=== PATIENT | female | born 2000 | race Caucasian/White ===

== ENCOUNTER 2021-08-10 17:17 | Emergency (ER) | payer SELFPAY ==
[2021-08-10 17:28] VITALS: BP 152/110; PULSE 92; RESP 18; TEMP 37.2; O2SAT 100
--- NOTE | 2021-08-10 20:24 | PC.NURSE ---
Called patient's name in lobby for VS check @ 20:15. Received no answer
--- NOTE | 2021-08-10 22:46 | PC.NURSE ---
No answer when called for recheck of vitals for 2nd time.
== END 2021-08-10 22:46 | disposition left against medical advice (07) ==
LOC: ANHED 22:54
PROVIDERS: PCP Internal Medicine
DX: O20.9 Hemorrhage in early pregnancy, unspecified (principal); Z3A.01 Less than 8 weeks gestation of pregnancy
CPT/HCPCS: 99199

== ENCOUNTER 2021-08-11 17:00 | Outpatient (RCR) | payer OTHER, SELFPAY | END 2021-11-09 23:59 | disposition home or self-care (01) | LOC: ANHLAB 17:00 | PROVIDERS: PCP Internal Medicine; Visit Provider Obstetrics & Gynecology | DX: O20.0 Threatened abortion (principal); Z3A.00 Weeks of gestation of pregnancy not specified | CPT/HCPCS: 36415; 84702; 85461 ==

== ENCOUNTER 2021-11-10 13:04 | Emergency (ER) | payer MEDICAID, SELFPAY ==
[2021-11-10 13:07] VITALS: BP 142/75; PULSE 97; RESP 18; TEMP 36.7; O2SAT 100
--- NOTE | 2021-11-10 13:42 | ECG_ITS ---
Measurements Intervals [place] Rate: 86 P: 57 TN: 137 QRS: 90 QRSD: 85 T: 40 QT: 341 QTc: 409 Interpretive Statements SINUS RHYTHM WITH SINUS ARRHYTHMIA RIGHT AXIS DEVIATION MINIMAL Q WAVES- INFERIOR LEADS BORDERLINE ECG Electronically Signed On 11-10-2021 14:43:11 CDT by Steve Fernando D.O.
--- NOTE | 2021-11-10 13:45 | ED.GENADULT ---
HPI - General Adult General Chief complaint: Unspecified Stated complaint: shortness of breath Time Seen by Provider: 11/10/21 13:12 History of Present Illness HPI narrative: 21-year-old female presents the emergency room for evaluation of shortness of breath and chest tightness started this morning. Patient states that she received a third COVID shot 3 days ago, and is concerned that she might have a blood clot. Patient also suffers with anxiety, stating when she has anxiety attack it causes her to have similar symptoms. Patient is 5 months and under the care of Dr. Dawkins. Related Data Allergies Allergy/AdvReac Type Severity Reaction Status Date / Time No Known Allergies Allergy Verified 11/10/21 13:09 Review of Systems Review of Systems: CONSTITUTIONAL: Denies fever, chills, or sweats. EYES: Denies visual changes, redness, or discharge. ENT: Denies rhinorrhea, congestion, sore throat, or otalgia. CARDIOVASCULAR: Reports chest pain, palpitations RESPIRATORY: Reports shortness of breath GASTROINTESTINAL: Denies abdominal pain, nausea, vomiting, or diarrhea. GENITOURINARY: Denies dysuria or hematuria. SKIN: Denies rash or itching. MUSCULOSKELETAL: Denies back pain, joint pain, or myalgia. NEUROLOGIC: Denies headache, numbness, dizziness, or weakness. PSYCHIATRIC: Denies anxiety or depression. Exam Narrative: GENERAL: Well-appearing, well-nourished HEAD: Normocephalic, atraumatic. EYES: PERRLA and EOMI. CHEST: Clear to auscultation. No respiratory distress. No wheezes rales or rhonchi HEART: Regular rate and rhythm. No murmur heard. Normal peripheral pulses. ABDOMEN: Soft, nontender, nondistended, normal active bowel sounds. EXTREMITIES: Normal range of motion. No edema. SKIN: Warm, dry, no rash. NEURO: No focal deficits. Alert and oriented x3. PSYCH: Anxious. Course Vital Signs Vital signs: Vital Signs Temperature 36.7 C 11/10/21 13:07 Pulse Rate 97 11/10/21 13:07 Respiratory Rate 18 11/10/21 13:07 Blood Pressure 142/75 H 11/10/21 13:07 Pulse Oximetry 100 11/10/21 13:07 Oxygen Delivery Room Air 11/10/21 13:07 Temperature 36.7 C 11/10/21 13:07 Pulse Rate 97 11/10/21 13:07 Respiratory Rate 18 11/10/21 13:07 Blood Pressure 142/75 H 11/10/21 13:07 Pulse Oximetry 100 11/10/21 13:07 Oxygen Delivery Room Air 11/10/21 13:07 Medical Decision Making Vital Signs Vital Signs: Vital Signs Temperature 36.7 C 11/10/21 13:07 Pulse Rate 97 11/10/21 13:07 Respiratory Rate 18 11/10/21 13:07 Blood Pressure 142/75 H 11/10/21 13:07 Pulse Oximetry 100 11/10/21 13:07 Oxygen Delivery Room Air 11/10/21 13:07 Temperature 36.7 C 11/10/21 13:07 Pulse Rate 97 11/10/21 13:07 Respiratory Rate 18 11/10/21 13:07 Blood Pressure 142/75 H 11/10/21 13:07 Pulse Oximetry 100 11/10/21 13:07 Oxygen Delivery Room Air 11/10/21 13:07 Lab Data Labs: Lab Results 11/10/21 11/10/21 Range/Units 14:06 14:06 D-Dimer 0.31 (<0.48) ug/mL Troponin I < 0.012 (0.000-0.034) ng/mL Discharge Plan Discharge Clinical Impression: Anxiety Patient Disposition: Home, Self-Care Condition: Stable Instructions: Antibiotic Form Additional Instructions: Follow-up with Dr. Dawkins at your next appointment. Return to the emergency room if you chest pain or shortness of breath does not resolve. Follow-up/Referrals: Dimitrios,MD Timur [Primary Care Provider] - Time of Disposition: 15:07
[2021-11-10 14:25] LABS: D Dimer 0.31 ug/mL (<0.48)
[2021-11-10 14:33] LABS: Troponin I < 0.012 ng/mL (0.000-0.034)
== END 2021-11-10 15:00 | disposition home or self-care (01) ==
PROVIDERS: Emergency Provider Nurse Practitioner Family; PCP Internal Medicine
DX: O99.342 Other mental disorders complicating pregnancy, second trimester (principal); F41.9 Anxiety disorder, unspecified; R94.31 Abnormal electrocardiogram [ECG] [EKG]; Z3A.00 Weeks of gestation of pregnancy not specified
CPT/HCPCS: 36415; 84484; 85380; 93005; 99284

== ENCOUNTER 2021-12-05 15:36 | Outpatient (RCR) | payer OTHER, SELFPAY ==
--- NOTE | 2021-12-05 15:23 | PC.NURSE ---
pt c/o no movement, pt is 22 weeks .
[2021-12-05 16:19] VITALS: BP 120/67; PULSE 99
== END 2022-03-05 23:59 | disposition home or self-care (01) ==
LOC: ANHOBOP 15:36
PROVIDERS: PCP Internal Medicine; Visit Provider Obstetrics & Gynecology
DX: O36.8120 Decreased fetal movements, second trimester, not applicable or unspecified (principal); Z3A.22 22 weeks gestation of pregnancy
CPT/HCPCS: 59025

== ENCOUNTER 2022-01-23 01:24 | Emergency (ER) | payer OTHER, SELFPAY ==
[2022-01-23 02:03] VITALS: BP 121/74; PULSE 101; RESP 26; TEMP 36.7; O2SAT 100
[2022-01-23 02:24] LABS: Appearance Urine Clear (Clear); Bilirubin Urine Negative (Negative); Blood Urine Negative (Negative); Color Urine Yellow (Yellow); Glucose Urine UA Negative (Negative); Ketones Urine Negative (Negative); Leukocyte Esterase Ur Negative LEU/UL (Negative); Nitrate Urine Negative (Negative); Protein Urine Negative (Negative); Urobilinogen Urine 0.2 mg/dL (<2.0)
[2022-01-23 02:27] LABS: Add Urine Microscopic? NO
--- NOTE | 2022-01-23 03:04 | ED.GENADULT ---
HPI - General Adult General Chief complaint: Unspecified Stated complaint: numbness to face and hands Time Seen by Provider: 01/23/22 02:58 Related Data Home Medications Medication Instructions Recorded Confirmed vitamin with calcium 1 tablet PO DAILY 12/05/21 12/05/21 no.72-iron 27 mg-folic acid 1 mg tablet ( Vitamins Plus Low Iron) Allergies Allergy/AdvReac Type Severity Reaction Status Date / Time bee venom protein (honey bee) Allergy Hives Verified 12/05/21 15:51 [bees] Exam Narrative: APPEARANCE: No apparent distress. Head atraumatic. EYES: PERRLA/EOMI, NOSE: Normal no drainage NECK: Supple, Trachea midline RESPIRATORY: CTAB, No increased work of breathing. CARDIOVASCULAR: S1S2 appreciated ABDOMINAL: gravid abdomen with a palpable uterus. No guarding or rebound. No tenderness. Point of care Ob ultrasound revealed a fetus with a heart rate of 143. MUSCULOSKELETAl: No obvious deformities NEURO: Alert. Cranial nerves 2-12 grossly intact. Sensation light touch, motor function cerebellar function intact for 4 extremities. Gait exam was normal. SKIN:: Warm, dry. Normal color PSYCHIATRIC: Normal affect Course Vital Signs Vital signs: Vital Signs Temperature 98.0 F 01/23/22 02:03 Pulse Rate 101 H 01/23/22 02:03 Respiratory Rate 26 H 01/23/22 02:03 Blood Pressure 121/74 01/23/22 02:03 Pulse Oximetry 100 01/23/22 02:03 Oxygen Delivery Room Air 01/23/22 02:03 Temperature 98.0 F 01/23/22 02:03 Pulse Rate 101 H 01/23/22 02:03 Respiratory Rate 26 H 01/23/22 02:03 Blood Pressure 121/74 01/23/22 02:03 Pulse Oximetry 100 01/23/22 02:03 Oxygen Delivery Room Air 01/23/22 02:03 Medical Decision Making [facility] Narrative Medical decision making narrative: This is a 21-year-old who is 29 weeks presenting the ED with a chief complaint of left arm and face tingling. Patient says that her symptoms started after she had dinner at a [employer] buffet. The patient denies numbness or weakness. The patient denies any other focal neurologic deficits. Her physical exam is normal. She says she has been having cramps at night would like her electrolytes checked. Basic lab work was ordered in all of her results were within acceptable limits. Her urinalysis was negative. POC Ob ultrasound revealed a active fetus with a normal heart rate. At this time I cannot find any emergent condition to be treated. The patient we discharged home to follow up with the primary care physician. Vital Signs Vital Signs: Vital Signs Temperature 98.0 F 01/23/22 02:03 Pulse Rate 101 H 01/23/22 02:03 Respiratory Rate 26 H 01/23/22 02:03 Blood Pressure 121/74 01/23/22 02:03 Pulse Oximetry 100 01/23/22 02:03 Oxygen Delivery Room Air 01/23/22 02:03 Temperature 98.0 F 01/23/22 02:03 Pulse Rate 101 H 01/23/22 02:03 Respiratory Rate 26 H 01/23/22 02:03 Blood Pressure 121/74 01/23/22 02:03 Pulse Oximetry 100 01/23/22 02:03 Oxygen Delivery Room Air 01/23/22 02:03 Lab Data Result diagrams: 01/23/22 03:32 01/23/22 03:32 Labs: Lab Results 01/23/22 01/23/22 01/23/22 Range/Units 02:13 03:32 03:32 WBC 13.2 H (4.5-10.0) K/mm3 RBC 4.10 L (4.2-5.4) M/mm3 Hgb 11.9 L (12.0-15.0) g/dL Hct 36.0 L (37.0-47.0) % MCV 87.8 (80-100) fl MCH 29.0 (26-34) pg MCHC 33.1 (32-36) g/dl RDW 12.7 (11.5-14.5) % Plt Count 264 (150-375) k/mm3 MPV 10.2 (7.4-10.4) fl Immature Gran % (Auto) 0.7 H (0-0.5) % Neut % (Auto) 77.3 H (45.5-73.1) % Lymph % (Auto) 12.9 L (18.3-44.2) % Caroline % (Auto) 5.8 (2.6-8.5) % Eos % (Auto) 3.0 (0-4.4) % Baso % (Auto) 0.3 (0.2-1.2) % Lymph # (Auto) 1.69 (0.9-3.2) K/mm3 Caroline # (Auto) 0.8 H (0.1-0.6) K/mm3 Eos # (Auto) 0.4 H (0-0.3) K/mm3 Baso # (Auto) 0.0 (0.0-0.1) K/mm3 Abs
[2022-01-23 03:43] LABS: Basophils Percent Auto 0.3 % (0.2-1.2); Eosinophils Absolute Auto 0.4 K/mm3 (0-0.3); Hemoglobin 11.9 g/dL (12.0-15.0); Immature Granulocyte Absolute 0.09 K/mm3 (0.00-0.031); Immature Granulocyte Percent A 0.7 % (0-0.5); Lymphocytes Absolute Auto 1.69 K/mm3 (0.9-3.2); Lymphocytes Percent Auto 12.9 % (18.3-44.2); Mean Corpuscular HGB Conc 33.1 g/dl (32-36); Mean Corpuscular Volume 87.8 fl (80-100); Mean Platelet Volume 10.2 fl (7.4-10.4); Monocytes Absolute Auto 0.8 K/mm3 (0.1-0.6); Monocytes Percent Auto 5.8 % (2.6-8.5); Neutrophils Absolute Auto 10.2 K/mm3 (1.3-6.7); Neutrophils Percent Auto 77.3 % (45.5-73.1); Platelet Count Result 264 k/mm3 (150-375); Red Cell Distribution Width 12.7 % (11.5-14.5); White Blood Count 13.2 K/mm3 (4.5-10.0)
[2022-01-23 03:52] LABS: Anion Gap 8 mmol/L (8-16); Blood Urea Nitrogen 6 mg/dL (7-17); Calcium 8.8 mg/dL (8.4-10.2); Carbon Dioxide 25 mmol/L (22-30); Chloride 103 mmol/L (98-107); Estimated CRCL calculation 171 ml/min; Estimated Glomerular Filt Rate > 60; Glucose 96 mg/dL (65-110); Potassium 3.5 mmol/L (3.4-5.0); Sodium 136 mmol/L (137-145)
[2022-01-23 04:20] VITALS: BP 121/80; PULSE 79; RESP 16; O2SAT 100
== END 2022-01-23 04:20 | disposition home or self-care (01) ==
PROVIDERS: Emergency Provider Emergency Medicine
DX: O26.893 Other specified pregnancy related conditions, third trimester (principal); R20.2 Paresthesia of skin; R25.2 Cramp and spasm; Z3A.29 29 weeks gestation of pregnancy
CPT/HCPCS: 36415; 80048; 81003; 85025; 99283

== ENCOUNTER 2022-01-30 11:12 | Observation (INO) | payer OTHER, SELFPAY ==
[2022-01-30 11:30] VITALS: BP 115/67; PULSE 110
--- NOTE | 2022-01-30 11:59 | PC.NURSE ---
Upon checking patient's cervix, patient became very tearful and asked her partner to look away. When performing the SVE, the patient was crying and saying it hurt. I asked the significant other to leave the room. I asked the patient if she felt safe at home to which she replied she does feel safe. I asked her if she has ever been a victim of sexual abuse and the patient denies. I then asked the patient why she was crying ans she stated, I don't like him being in the room for that. It makes me feel really weird. I informed the patient I will ask him to step out of the room for subsequent cervical exams. I reassured the patient she is in a safe environment and if she needs to talk to anyone, I am available.
[2022-01-30 12:00] VITALS: BMI 32.5
--- NOTE | 2022-01-30 12:11 | LDADM ---
This patient, Ifrah Brady, was admitted to OB Post [facility] on 01/30/22 at 11:12. Plans for labor, pain management and were discussed with patient. Patient/family oriented to hospital policies and general routines including ID bracelet, bed and alarms, visiting hours, pain management, procedures, bathroom and other care routines, personal items, smoking policy, room service/diet and guest tray routines, infant security routines, and visiting hours. Patient/Family are encouraged to report perceived risks to care and to ask questions if they do not understand what they are told or what they should do. See OBIX for further documentation.
[2022-01-30 12:33] LABS: Amorphous Sediment Urine Moderate; Appearance Urine Slightly Cloudy (Clear); Bacteria Urine Trace /hpf; Bilirubin Urine Negative (Negative); Blood Urine Negative (Negative); Color Urine Yellow (Yellow); Glucose Urine UA Negative (Negative); Ketones Urine Negative (Negative); Leukocyte Esterase Ur Negative LEU/UL (Negative); Mucus Urine Rare /lpf; Nitrate Urine Negative (Negative); Protein Urine Negative (Negative); Specific Grav Ur 1.025 (1.001-1.035); Squamous Epithelial Cell Urine Many /hpf (Few); Urobilinogen Urine 0.2 mg/dL (<2.0); WBC Urine 0-3 /hpf
[2022-01-30 12:35] LABS: Add Urine Microscopic? YES
--- NOTE | 2022-03-01 09:54 | PM.OBTRLD ---
OB - Triage/Final Diagnosis Visit Information Comments/Additional reasons for admission: I have assessed the risk for this patient, Ifrah Brady, and determined that she would benefit from observation care. Evaluation Laboratory results: Laboratory Tests 01/30/22 11:46 Urine Color Yellow Urine Appearance Slightly cloudy Urine pH 7.0 Ur Specific [place] 1.025 Urine Protein Negative Urine Glucose (UA) Negative Urine Ketones Negative Ur Blood (Man) Negative Urine Nitrate Negative Urine Bilirubin Negative Urine Urobilinogen 0.2 Leukocyte Esterase Rfl Negative Urine RBC 3-5 H Urine WBC 0-3 Ur Squamous Epith Cells Many H Amorphous Sediment Moderate H Urine Bacteria Trace Urine Mucus Rare Final Diagnosis (1) Abdominal cramping: Code(s): R10.9 - Unspecified abdominal pain Status: Acute
== END 2022-01-30 12:58 | disposition home or self-care (01) ==
PROVIDERS: Admitting Provider Obstetrics & Gynecology; Visit Provider Obstetrics & Gynecology
DX: O26.893 Other specified pregnancy related conditions, third trimester (principal); R10.9 Unspecified abdominal pain; Z3A.30 30 weeks gestation of pregnancy
CPT/HCPCS: 81001; G0378; G0379

== ENCOUNTER 2022-02-23 16:33 | Emergency (ER) | payer OTHER, SELFPAY ==
[2022-02-23 16:54] VITALS: BP 124/79; PULSE 86; RESP 12; TEMP 36.8; O2SAT 100
--- NOTE | 2022-02-23 18:11 | ED.EAR ---
HPI - Ear Problem General Chief complaint: Ear <Ifrah San PA-C - Last Filed: 02/23/22 18:20> Stated complaint: ringing to left ear and muffled. <ADDI Talamantes Last Filed: 02/23/22 18:20> Time Seen by Provider: 02/23/22 17:37 <Ifrah San PA-C - Last Filed: 02/23/22 18:20> Source: patient <ADDI Talamantes Last Filed: 02/23/22 18:20> Mode of arrival: ambulatory <ADDI Talamantes Last Filed: 02/23/22 18:20> Limitations: no limitations <ADDI Talamantes Last Filed: 02/23/22 18:20> History of Present Illness HPI Narrative: This is a 21-year-old female that presents to the emergency department for left ear fullness. Associated with some ringing in the ear. No other associated symptoms. Denies fever, abnormal drainage from the ear, or pain. <ADDI Talamantes Last Filed: 02/23/22 18:20> Related Data Home medications: Home Medications Medication Instructions Recorded Confirmed vitamin with calcium 1 tablet PO DAILY 12/05/21 12/05/21 no.72-iron 27 mg-folic acid 1 mg tablet ( Vitamins Plus Low Iron) <ADDI Talamantes Last Filed: 02/23/22 18:20> Allergies/adverse reactions: Allergies Allergy/AdvReac Type Severity Reaction Status Date / Time bee venom protein (honey bee) Allergy Hives Verified 12/05/21 15:51 [bees] <ADDI Talamantes Last Filed: 02/23/22 18:20> Review of Systems Review of Systems: CONSTITUTIONAL: Denies fever ENT: Denies otalgia. <ADDI Talamantes Last Filed: 02/23/22 18:20> All systems reviewed & are unremarkable except as noted in HPI and below <ADDI Talamantes Last Filed: 02/23/22 18:20> FOR[facility]LY [facility], [facility] Past Medical History Medical History: Medical History (Updated 02/24/22 @ 00:00 by William Shepherd) No active medical problems <Ifrah San PA-C - Last Filed: 02/23/22 18:20> Social History Social History: Social History (Updated 02/23/22 @ 18:14 by Ifrah San PA-C) Smoking status: Never smoker <Ifrah San PA-C - Last Filed: 02/23/22 18:20> Exam Narrative: GENERAL: Well-appearing, well-nourished, and in no acute distress. HEAD: Normocephalic, atraumatic. EYES: EOMI. ENT: Bilateral external auditory canals are normal. Bilateral TMs pearly garcia, non-bulging. Scar tissue is noted on bilateral TMs. No obvious effusion CHEST: No respiratory distress. HEART: Regular rate EXTREMITIES: Normal range of motion. No edema. SKIN: Warm, dry, no rash. NEURO: No focal deficits. Alert and oriented x3. PSYCH: Normal mood and affect <Ifrah San PA-C - Last Filed: 02/23/22 18:20> Course QUALITY CONTROL AUDITOR/PA Physician Supervision For this patient encounter, I reviewed the QUALITY CONTROL AUDITOR or PA documentation, treatment plan, and medical decision making <Amrit Garza MD - Last Filed: 02/24/22 07:18> Vital Signs Vital signs: Vital Signs Temperature 98.3 F 02/23/22 16:54 Pulse Rate 86 02/23/22 16:54 Respiratory Rate 12 02/23/22 16:54 Blood Pressure 124/79 02/23/22 16:54 Pulse Oximetry 100 02/23/22 16:54 Temperature 98.3 F 02/23/22 16:54 Pulse Rate 86 02/23/22 16:54 Respiratory Rate 12 02/23/22 16:54 Blood Pressure 124/79 02/23/22 16:54 Pulse Oximetry 100 02/23/22 16:54 <Ifrah San PA-C - Last Filed: 02/23/22 18:20> Vital Signs Temperature 98.3 F 02/23/22 16:54 Pulse Rate 86 02/23/22 16:54 Respiratory Rate 12 02/23/22 16:54 Blood Pressure 124/79 02/23/22 16:54 Pulse Oximetry 100 02/23/22 16:54 Temperature 98.3 F 02/23/22 16:54 Pulse Rate 86 02/23/22 16:54 Respiratory Rate 12 02/23/22 16:54 Blood Pressure 124/79 02/23/22 16:54 Pulse Oximetry 100 02/23/22 16:54 <Amrit Garza MD - Last Filed: 02/24/22 07:18> Medical Decision Making MDM Narrative Medical decision making narrative: Patient presents to
== END 2022-02-23 18:36 | disposition home or self-care (01) ==
LOC: ANHED 18:30
PROVIDERS: Emergency Provider Emergency Medicine
DX: H93.8X2 Other specified disorders of left ear (principal)
CPT/HCPCS: 99281

== ENCOUNTER 2022-02-26 19:49 | Observation (INO) | payer OTHER, SELFPAY ==
[2022-02-26 21:04] LABS: Appearance Urine Clear (Clear); Bilirubin Urine Negative (Negative); Blood Urine Negative (Negative); Color Urine Yellow (Yellow); Glucose Urine UA Negative (Negative); Ketones Urine Negative (Negative); Leukocyte Esterase Ur Negative LEU/UL (NEGATIVE); Nitrate Urine Negative (Negative); Protein Urine Negative (Negative); Specific Grav Ur 1.015 (1.001-1.035); Urobilinogen Urine 0.2 mg/dL (<2.0)
[2022-02-26 21:08] LABS: Add Urine Microscopic? NO
[2022-02-26 21:17] LABS: EDCOVIDSCREEN Negative (Negative)
[2022-02-26 21:20] LABS: Influenza Control Positive
[2022-02-26 22:14] VITALS: BMI 36.0
--- NOTE | 2022-02-26 22:15 | OBADM ---
This patient, Ifrah Brady, admitted to the OB room Labor/Delivery/Recovery 107 for observation. Patient/family oriented to hospital policies and general routines including ID bracelet, bed and alarms, visiting hours, pain management, procedures, bathroom and other care routines, personal items, smoking policy, room service/diet, and visiting hours. Patient/Family are encouraged to report perceived risks to care and to ask questions if they do not understand what they are told or what they should do.
--- NOTE | 2022-03-02 15:36 | P.PNOB_ITS ---
OB - Triage/Final Diagnosis Visit Information Comments/Additional reasons for admission: I have assessed the risk for this patient, Ifrah Brady, and determined that she would benefit from observation care. Evaluation Laboratory results: Laboratory Tests 02/26/22 02/26/22 02/26/22 20:46 20:46 20:46 Urine Color Yellow Urine Appearance Clear Urine pH 7.0 Ur Specific [place] 1.015 Urine Protein Negative Urine Glucose (UA) Negative Urine Ketones Negative Ur Blood (Man) Negative Urine Nitrate Negative Urine Bilirubin Negative Urine Urobilinogen 0.2 Ur Leukocyte Esterase Negative Influenza Types A,B Ag Negative SARS-CoV-2 IgG/IgM Ag?Rapid Negative Final Diagnosis (1) Abdominal pain affecting : Code(s): O26.899 - Other specified related conditions, unspecified trimester; R10.9 - Unspecified abdominal pain Status: Acute
== END 2022-02-26 22:45 | disposition home or self-care (01) ==
PROVIDERS: Admitting Provider Obstetrics & Gynecology; Visit Provider Obstetrics & Gynecology
DX: O26.893 Other specified pregnancy related conditions, third trimester (principal); R10.9 Unspecified abdominal pain; Z3A.34 34 weeks gestation of pregnancy
CPT/HCPCS: 81003; 87426; 87804; C9803; G0378; G0379

== ENCOUNTER 2022-02-27 20:50 | Emergency (ER) | payer OTHER, SELFPAY ==
[2022-02-27] VITALS (13 sets, daily range): BP systolic 118–149; BP diastolic 73–96; PULSE 121–142; RESP 16–32; TEMP 37; O2SAT 97–100
--- NOTE | ~2022-02-27 | CT_ITS ---
EXAMINATION: CTA chest PE protocol DATE: 02/27/2022 23:26 INDICATION: elevated ddimer, tachycardia, SOB, concern for PE TECHNIQUE: Computed tomography angiography (CTA) of the chest was performed with 100 mL Omnipaque-350 intravenous contrast timed to evaluate the pulmonary arteries. Coronal maximum intensity projection 3D-reconstructions were created by the technologist. The dose-length product (DLP) was 376.02 mGy-cm. Automated exposure control and iterative reconstruction technique were employed. COMPARISON: None. FINDINGS: Lung parenchyma and airways: Clear. Pleura: Unremarkable. Thoracic inlet, axillae and chest wall: Unremarkable. Thoracic aorta: Apparent right subclavian artery. Mediastinum: Normal. Heart and pericardium: Normal. Coronary artery calcifications: Absent. Upper abdomen: No significant finding. Bones: No acute osseous finding. Pulmonary arteries: Study quality: Motion limited, most notably in the left lower lung. No pulmonary emboli detected. IMPRESSION: Motion limited examination, particularly in the left lower lung, within that constraint, no definite CT evidence of acute pulmonary embolus. Reviewed, dictated and finalized at location K. IMPRESSION: Motion limited examination, particularly in the left lower lung, within that co nstraint, no definite CT evidence of acute pulmonary embolus.
--- NOTE | 2022-02-27 21:01 | PC.NURSE ---
OB called to come monitor baby per request from TESS Garza. Pt is 34 weeks .
--- NOTE | 2022-02-27 21:18 | ED.GENADULT ---
HPI - General Adult General Chief complaint: Shortness of Breath/Dyspnea Stated complaint: SOB, 34 Weeks Time Seen by Provider: 02/27/22 20:55 History of Present Illness HPI narrative: 21-year-old female that is approximately 34 weeks presenting to the emergency department for evaluation of worsening shortness of breath. Patient was evaluated in the emergency department yesterday and had negative COVID and flu test. Patient states while she has had the cough for the last 3 days she states that she began having worsening wheezing today. Patient states she is having some abdominal cramping as well. Patient denies any vaginal bleeding. Patient reports he does have a prior history of asthma. Related Data Home Medications Medication Instructions Recorded Confirmed vitamin with calcium 1 tablet PO DAILY 12/05/21 12/05/21 no.72-iron 27 mg-folic acid 1 mg tablet ( Vitamins Plus Low Iron) Allergies Allergy/AdvReac Type Severity Reaction Status Date / Time bee venom protein (honey bee) Allergy Hives Verified 12/05/21 15:51 [bees] Review of Systems Review of Systems: CONSTITUTIONAL: Denies fever, chills, or sweats. EYES: Denies visual changes, redness, or discharge. ENT: Denies rhinorrhea, congestion, sore throat, or otalgia. CARDIOVASCULAR: Denies chest pain, palpitations, or edema. RESPIRATORY: Cough and shortness of breath GASTROINTESTINAL: See HPI GENITOURINARY: Denies dysuria or hematuria. SKIN: Denies rash or itching. MUSCULOSKELETAL: Denies back pain, joint pain, or myalgia. NEUROLOGIC: Denies headache, numbness, or weakness. [facility] Past Medical History Medical History (Updated 02/28/22 @ 01:32 by Amrit Garza MD) No active medical problems Social History Social History (Updated 02/23/22 @ 18:14 by Ifrah San PA-C) Smoking status: Never smoker Exam Narrative: APPEARANCE: Ill-appearing HEAD: normocephalic, atraumatic. EYES: PERRLA/EOMI, conjunctivae clear. NOSE: Nasal congestion EARS:TMS clear with good light reflex. THROAT: Pharynx clear, no exudate. NECK: Supple. No adenopathy, no masses. RESPIRATORY: Wheezing bilaterally CARDIOVASCULAR: Tachycardia ABDOMINAL: Soft, nontender, nondistended, normal bowel sounds, gravid abdomen MUSCULOSKELETAL: Moves all extremities. Strength/ROM intact, No edema, No calf tenderness. NEURO: Alert. Cranial nerves II through XII intact. Grossly intact SKIN: Warm, dry. Normal Color Course Course Emergency Course: Patient does have significant expiratory wheezing. Patient felt improved briefly after her first breathing treatment. I think breathing treatment was ordered. Patient's D-dimer was elevated. Concern for pulmonary embolism. Patient was updated on the risks and benefits of the CT scan. Patient was agreeable to have the CT scan to rule out a pulmonary embolism. CTA was negative for pulm embolism. Patient did feel improved with albuterol breathing treatments. Lung sounds were clear on reevaluation. Patient was mildly tachycardic after the albuterol treatments but heart rate did improve with rehydration. Patient was provided albuterol inhaler encouraged to have close follow-up with her primary care physician and with [facility]. Patient was comfortable with the plan for discharge and close follow-up. Patient was able to ambulate in the emergency department without issues. Patient states she feels her breathing is improved. Patient's lungs are clear to auscultation. Patient's heart rate is also improved. Patient is denying any abdominal cramping at this time. Patient was evaluated by [facility] in our ED and had normal evaluation. At time of discharge [facility] states they were comfortable with the being discharged home but did not need to reevaluate the patient. Vital Signs Vital signs: Vital Signs Temperature 98.6 F 02/27/22 20:55 Pulse Rate 130 H 02/27/22 20:55 Respiratory Rate 22 H 02/27/22 20:5
--- NOTE | 2022-02-27 21:20 | ECG_ITS ---
Measurements Intervals [place] Rate: 129 P: 59 OR: 124 QRS: 87 QRSD: 84 T: 14 QT: 295 QTc: 433 Interpretive Statements SINUS TACHYCARDIA MINIMAL Q WAVES- INFERIOR LEADS BASELINE ARTIFACT- II, III, V3 ABNORMAL ECG COMPARED TO ECG 11/10/2021 14:12:14 SINUS TACHYCARDIA NOW PRESENT Electronically Signed On 02-27-2022 21:41:54 CDT by Steve Fernando D.O.
[2022-02-27 21:24] LABS: Basophils Percent Auto 0.2 % (0.2-1.2); Eosinophils Absolute Auto 0.6 K/mm3 (0-0.3); Eosinophils Percent Auto 3.6 % (0-4.4); Hematocrit 35.7 % (37.0-47.0); Immature Granulocyte Absolute 0.06 K/mm3 (0.00-0.031); Immature Granulocyte Percent A 0.4 % (0-0.5); Lymphocytes Absolute Auto 1.16 K/mm3 (0.9-3.2); Lymphocytes Percent Auto 6.9 % (18.3-44.2); Mean Corpuscular HGB Conc 33.6 g/dl (32-36); Mean Corpuscular Hemoglobin 28.8 pg (26-34); Mean Corpuscular Volume 85.6 fl (80-100); Mean Platelet Volume 10.5 fl (7.4-10.4); Monocytes Absolute Auto 0.9 K/mm3 (0.1-0.6); Monocytes Percent Auto 5.6 % (2.6-8.5); Neutrophils Percent Auto 83.3 % (45.5-73.1); Platelet Count Result 256 k/mm3 (150-375); Red Blood Count 4.17 M/mm3 (4.2-5.4); Red Cell Distribution Width 13.2 % (11.5-14.5); White Blood Count 16.8 K/mm3 (4.5-10.0)
[2022-02-27 21:33] LABS: Alveolar/Arterial O2 Gradient 32.2 mmHg; Base Excess ABG -3.7 mEq/l (+/-2.0); Fractional Inspired Oxygen 21 %; HCO3 ABG 18.9 mEq/l (22.0-26.0); Oxygen Content ABG 17.1 %vol (16.0-22.0); Oxygen Saturation ABG 96.9 % (95.0-100.0); Oxyhemoglobin 95.5 % THb (90.0-100.0); PCO2 ABG 27.8 mmHg (35.0-45.0); PO2 ABG 84.2 mmHg (80.0-100.0); PO2 FiO2 Ratio Arterial Blood 4.01 %; Total Hemoglobin 12.7 g/dL (12.0-18.0); pH ABG 7.451 (7.350-7.450)
[2022-02-27 21:34] LABS: Alanine Aminotransferase 27 U/L (6-35); Albumin Level 3.7 g/dL (3.5-5.1); Alkaline Phosphatase 155 U/L (38-126); Anion Gap 9 mmol/L (8-16); Aspartate Amino Transferase 29 U/L (14-36); Bilirubin,Total 0.3 mg/dL (0.2-1.3); Blood Urea Nitrogen 9 mg/dL (7-17); Calcium 9.7 mg/dL (8.4-10.2); Carbon Dioxide 21 mmol/L (22-30); Chloride 106 mmol/L (98-107); Estimated Glomerular Filt Rate > 60; Glucose 94 mg/dL (65-110); Potassium 3.5 mmol/L (3.4-5.0); Sodium 136 mmol/L (137-145)
[2022-02-27 21:34] LABS: Modified Allen's Test Pass; Site Drawn LEFT RADIAL
[2022-02-27] MEDS: SODIUM CHLORIDE 0.9% IV 1,000 ML 999 ML IV CONT (21:35)
[2022-02-27] MEDS: ALBUTEROL SULFATE NEB 2.5 MG/3 ML INH 5 MG INHALATION ×2 (21:41→23:38)
[2022-02-27 21:46] LABS: D Dimer 0.91 ug/mL (<0.48)
[2022-02-27 22:15] LABS: SARS-CoV-2 RNA PCR Negative
[2022-02-28] VITALS (8 sets, daily range): BP systolic 116; BP diastolic 85; PULSE 109–120; RESP 18–23; TEMP 37.1; O2SAT 97–100
[2022-02-28] MEDS: SODIUM CHLORIDE 0.9% IV 1,000 ML 999 ML IV CONT (00:14)
== END 2022-02-28 01:53 | disposition home or self-care (01) ==
PROVIDERS: Emergency Provider Emergency Medicine
DX: O99.513 Diseases of the respiratory system complicating pregnancy, third trimester (principal); J45.901 Unspecified asthma with (acute) exacerbation; R00.0 Tachycardia, unspecified; Z3A.34 34 weeks gestation of pregnancy
CPT/HCPCS: 36415; 36600; 71275; 80053; 82805; 85025; 85380; 93005; 94640; 96360; 96361; 99284; C9803; J7030; Q9967; U0003; U0005

== ENCOUNTER 2022-05-26 19:16 | Emergency (ER) | payer OTHER, SELFPAY ==
[2022-05-26 19:19] VITALS: BP 140/95; PULSE 75; RESP 16; TEMP 36.6; O2SAT 98
--- NOTE | 2022-05-26 21:36 | PC.NURSE ---
Pt called for room at this time. no answer.
== END 2022-05-26 21:36 | disposition left against medical advice (07) ==
DX: O16.5 Unspecified maternal hypertension, complicating the puerperium (principal)
CPT/HCPCS: 99199

== ENCOUNTER 2022-05-27 20:10 | Emergency (ER) | payer OTHER, SELFPAY ==
[2022-05-27] VITALS (18 sets, daily range): BP systolic 120–138; BP diastolic 64–98; PULSE 64–86; RESP 12–20; TEMP 36.6; O2SAT 96–100
--- NOTE | ~2022-05-27 | XR_ITS ---
EXAMINATION: XR chest 2V 05/27/2022 22:42 INDICATION: Dizziness. PROCEDURE: 2 view chest COMPARISON: 03/26/2009 FINDINGS: The lungs are clear. The cardiomediastinal silhouette is within normal limits. There are no pleural effusions. There is no pneumothorax suspected. IMPRESSION: 1: NO ACUTE CARDIOPULMONARY DISEASE. Reviewed, dictated and finalized at location A. SALESPERSON
--- NOTE | 2022-05-27 20:18 | ECG_ITS ---
Measurements Intervals [place] Rate: 75 P: 51 IN: 132 QRS: 98 QRSD: 88 T: 50 QT: 377 QTc: 422 Interpretive Statements SINUS RHYTHM WITH SINUS ARRHYTHMIA BORDERLINE RIGHT AXIS DEVIATION [QRS AXIS > 90] COMPARED TO ECG 02/27/2022 21:33:44 HEART RATE IS REDUCED NO OTHER SIGNIFICANT CHANGE Electronically Signed On 05-28-2022 7:45:05 SILO TENDER by Timur Mancilla M.D.
[2022-05-27 21:31] LABS: Appearance Urine Clear (Clear); Bilirubin Urine Negative (Negative); Blood Urine 2+ (Negative); Color Urine Yellow (Yellow); Glucose Urine UA Negative (Negative); Ketones Urine 1+ mg/dL (Negative); Leukocyte Esterase Ur Trace LEU/UL (Negative); Nitrate Urine Negative (Negative); Protein Urine Negative (Negative); Urobilinogen Urine 0.2 mg/dL (<2.0); pH Urine 5.5 (5.0-9.0)
--- NOTE | 2022-05-27 21:35 | ED.RECABL ---
HPI - Recheck/Abnormal Lab/Rx General Chief Complaint: Dizziness <Ifrah San PA-C - Last Filed: 05/27/22 23:43> Stated Complaint: HTN <Ifrah San PA-C - Last Filed: 05/27/22 23:43> Time Seen by Provider: 05/27/22 21:29 <Ifrah San PA-C - Last Filed: 05/27/22 23:43> Source: patient <Ifrah San PA-C - Last Filed: 05/27/22 23:43> Mode of arrival: ambulatory <Ifrah San PA-C - Last Filed: 05/27/22 23:43> Limitations: no limitations <Ifrah San PA-C - Last Filed: 05/27/22 23:43> History of Present Illness HPI narrative: This is a 21-year-old female that presents to the emergency department for elevated blood pressures. Reports she was recently started on labetalol for hypertension. Has recent history of preeclampsia, she gave 7 weeks ago. Reports over the last couple of days she has noted her blood pressures have been in the 130s to 140s systolic with diastolics in the 100s. This concerned her which prompted her to be seen. 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 Reports she has had some lightheadedness, palpitations and chest discomfort. Denies shortness of breath or lower extremity edema. <Ifrah San PA-C - Last Filed: 05/27/22 23:43> Related Data Home Medications: Home Medications Medication Instructions Recorded Confirmed vitamin with calcium 1 tablet PO DAILY 12/05/21 12/05/21 no.72-iron 27 mg-folic acid 1 mg tablet ( Vitamins Plus Low Iron) <Ifrah San PA-C - Last Filed: 05/27/22 23:43> Allergies/Adverse Reactions: Allergies Allergy/AdvReac Type Severity Reaction Status Date / Time bee venom protein (honey bee) Allergy Hives Verified 12/05/21 15:51 [bees] <ADDI Talamantes Last Filed: 05/27/22 23:43> Review of Systems Review of Systems: CONSTITUTIONAL: Denies fever EYES: Denies visual changes CARDIOVASCULAR: Reports chest pain, palpitations. Denies edema. RESPIRATORY: Denies dyspnea. GASTROINTESTINAL: Denies vomiting GENITOURINARY: Denies dysuria SKIN: Denies rash MUSCULOSKELETAL: Denies back pain NEUROLOGIC: Reports headache. Denies numbness, or weakness. PSYCHIATRIC: Reports anxiety <Ifrah San PA-C - Last Filed: 05/27/22 23:43> All systems reviewed & are unremarkable except as noted in HPI and below <Ifrah San PA-C - Last Filed: 05/27/22 23:43> [facility] Past Medical History Medical History: Medical History (Updated 05/29/22 @ 00:01 by William Shepherd) History of hypertension <Ifrah San PA-C - Last Filed: 05/27/22 23:43> Social History Social History: Social History (Updated 02/23/22 @ 18:14 by Ifrah San PA-C) Smoking status: Never smoker <Ifrah San PA-C - Last Filed: 05/27/22 23:43> Exam Narrative: GENERAL: Well-appearing, well-nourished, and in no acute distress. HEAD: Normocephalic, atraumatic. EYES: PERRLA and EOMI. ENT: Nares clear, no rhinorrhea or epistaxis. Mucous membranes moist. Oropharynx without tonsillar hypertrophy exudate or other lesions. Bilateral TMs pearly garcia non-bulging NECK: Supple. No adenopathy or masses. CHEST: Clear to auscultation. No respiratory distress. No wheezes rales or rhonchi HEART: Regular rate and rhythm. No murmur heard. Normal peripheral pulses. EXTREMITIES: Normal range of motion. No edema. SKIN: Warm, dry, no rash. NEURO: No focal deficits. Alert and oriented x3. Cranial nerves II through XII grossly intact PSYCH: Normal mood and affect <Ifrah San PA-C - Last Filed: 05/27/22 23:43> Course LEHR ATTENDANT/PA Physician Supervision For this encounter, I have reviewed the mid-level provider documentation, treatment plan and medical decision making. I have had [id number] time with the patient. Physical exam revealed a well-appearing female who is slightly anxious. Physical exam was normal. Laboratory stud
[2022-05-27 21:36] LABS: Add Urine Microscopic? YES; Bacteria Urine Trace /hpf; Mucus Urine Rare /lpf; Squamous Epithelial Cell Urine Few /hpf (Few)
[2022-05-27 21:59] LABS: Pregnancy On Board Control Positive; Urine Pregnancy Test Negative
[2022-05-27 22:14] LABS: Basophils Percent Auto 0.4 % (0.2-1.2); Eosinophils Absolute Auto 0.2 K/mm3 (0-0.3); Eosinophils Percent Auto 2.7 % (0-4.4); Hematocrit 45.4 % (37.0-47.0); Hemoglobin 15.2 g/dL (12.0-15.0); Immature Granulocyte Absolute 0.02 K/mm3 (0.00-0.031); Immature Granulocyte Percent A 0.3 % (0-0.5); Lymphocytes Percent Auto 28.8 % (18.3-44.2); Mean Corpuscular HGB Conc 33.5 g/dl (32-36); Mean Corpuscular Hemoglobin 28.4 pg (26-34); Mean Corpuscular Volume 84.7 fl (80-100); Mean Platelet Volume 9.4 fl (7.4-10.4); Monocytes Absolute Auto 0.4 K/mm3 (0.1-0.6); Neutrophils Absolute Auto 4.5 K/mm3 (1.3-6.7); Neutrophils Percent Auto 61.8 % (45.5-73.1); Platelet Count Result 325 k/mm3 (150-375); Red Blood Count 5.36 M/mm3 (4.2-5.4); Red Cell Distribution Width 13.1 % (11.5-14.5); White Blood Count 7.3 K/mm3 (4.5-10.0)
[2022-05-27] MEDS: SODIUM CHLORIDE 0.9% IV 500 ML 999 ML IV CONT (22:17)
[2022-05-27 22:23] LABS: Lactate Dehydrogenase 213 U/L (120-246)
[2022-05-27 22:25] LABS: Alanine Aminotransferase 37 U/L (6-35); Albumin Level 5.3 g/dL (3.5-5.1); Alkaline Phosphatase 93 U/L (38-126); Anion Gap 9 mmol/L (8-16); Aspartate Amino Transferase 36 U/L (14-36); Bilirubin,Total 0.6 mg/dL (0.2-1.3); Blood Urea Nitrogen 11 mg/dL (7-17); Calcium 9.5 mg/dL (8.4-10.2); Carbon Dioxide 27 mmol/L (22-30); Chloride 103 mmol/L (98-107); Estimated CRCL calculation 115 ml/min; Estimated Glomerular Filt Rate > 60; Glucose 94 mg/dL (65-110); Potassium 3.7 mmol/L (3.4-5.0); Sodium 139 mmol/L (137-145)
[2022-05-27 22:36] LABS: Troponin I < 0.012 ng/mL (0.000-0.034)
== END 2022-05-28 00:36 | disposition home or self-care (01) ==
PROVIDERS: Physician Assistant; Emergency Provider Emergency Medicine
DX: I10 Essential (primary) hypertension (principal); R94.31 Abnormal electrocardiogram [ECG] [EKG]
CPT/HCPCS: 36415; 71046; 80053; 81001; 81025; 83615; 84484; 85025; 87086; 93005; 96360; 96361; 99284; J7040

== ENCOUNTER 2022-06-11 21:19 | Emergency (ER) | payer OTHER, SELFPAY ==
--- NOTE | ~2022-06-11 | XR_ITS ---
XR chest 2V DATE: 06/11/2022 21:59 INDICATION: Left-sided chest pain for 2 weeks. History of hypertension. TECHNIQUE: PA and lateral views COMPARISON: 05/27/2022 2 view chest FINDINGS: Normal heart size. No hilar or mediastinal enlargement. No pulmonary infiltrate or consolid ation, pleural effusion or pulmonary vascular congestion or pneumothorax. Included skeletal structures are unremarkable. IMPRESSION: Negative Reviewed, dictated and finalized at location A. FRENCH IMPRESSION: Negative
--- NOTE | 2022-06-11 21:19 | ECG_ITS ---
Measurements Intervals [place] Rate: 111 P: 66 [place]: 137 QRS: 92 QRSD: 83 T: 48 QT: 324 QTc: 441 Interpretive Statements SINUS TACHYCARDIA NONSPECIFIC ST ABNORMALITY BORDERLINE ECG COMPARED TO ECG 05/27/2022 20:21:38 HEART RATE HAS INCREASED Electronically Signed On 06-12-2022 13:31:18 UNDERGROUND UTILITY LOCATOR by Karan Dalton M.D.
[2022-06-11 21:26] VITALS: BP 132/98; PULSE 105; RESP 20; TEMP 36.4; O2SAT 100
[2022-06-11 21:40] LABS: Basophils Percent Auto 0.4 % (0.2-1.2); Eosinophils Absolute Auto 0.4 K/mm3 (0-0.3); Eosinophils Percent Auto 3.2 % (0-4.4); Hematocrit 41.2 % (37.0-47.0); Hemoglobin 13.9 g/dL (12.0-15.0); Immature Granulocyte Absolute 0.03 K/mm3 (0.00-0.031); Immature Granulocyte Percent A 0.3 % (0-0.5); Lymphocytes Absolute Auto 1.94 K/mm3 (0.9-3.2); Lymphocytes Percent Auto 17.1 % (18.3-44.2); Mean Corpuscular HGB Conc 33.7 g/dl (32-36); Mean Corpuscular Volume 83.1 fl (80-100); Mean Platelet Volume 9.2 fl (7.4-10.4); Monocytes Absolute Auto 0.6 K/mm3 (0.1-0.6); Monocytes Percent Auto 5.4 % (2.6-8.5); Neutrophils Absolute Auto 8.4 K/mm3 (1.3-6.7); Neutrophils Percent Auto 73.6 % (45.5-73.1); Platelet Count Result 285 k/mm3 (150-375); Red Blood Count 4.96 M/mm3 (4.2-5.4); Red Cell Distribution Width 12.9 % (11.5-14.5); White Blood Count 11.3 K/mm3 (4.5-10.0)
[2022-06-11 21:52] LABS: Alanine Aminotransferase 24 U/L (6-35); Albumin Level 4.9 g/dL (3.5-5.1); Alkaline Phosphatase 73 U/L (38-126); Anion Gap 9 mmol/L (8-16); Aspartate Amino Transferase 26 U/L (14-36); Bilirubin,Total 0.5 mg/dL (0.2-1.3); Blood Urea Nitrogen 15 mg/dL (7-17); Calcium 9.6 mg/dL (8.4-10.2); Carbon Dioxide 27 mmol/L (22-30); Chloride 101 mmol/L (98-107); Estimated CRCL calculation 115 ml/min; Estimated Glomerular Filt Rate > 60; Glucose 135 mg/dL (65-110); Lipase 49 U/L (23-300); Partial Thromboplastin Time 25.7 SECONDS (22.3-36.8); Potassium 3.7 mmol/L (3.4-5.0); Sodium 137 mmol/L (137-145)
[2022-06-11 22:03] LABS: Troponin I < 0.012 ng/mL (0.000-0.034)
--- NOTE | 2022-06-11 22:44 | PC.NURSE ---
pt to triage desk inquiring about lab results. education provided about seeing a provider before any results can be discussed. pt left triage station and went out sliding doors of the waiting room, without saying anything.
--- NOTE | 2022-06-12 01:24 | PC.NURSE ---
pt no found in waiting room when called to be taken back to a room.
== END 2022-06-12 01:30 | disposition left against medical advice (07) ==
LOC: ANHED 06-12 01:27
PROVIDERS: Emergency Provider Emergency Medicine
DX: R06.02 Shortness of breath (principal)
CPT/HCPCS: 36415; 71046; 80053; 83690; 84484; 85025; 85610; 85730; 93005; 99199

== ENCOUNTER 2022-08-19 12:29 | Emergency (ER) | payer OTHER, SELFPAY ==
[2022-08-19] VITALS (15 sets, daily range): BP systolic 111–124; BP diastolic 65–77; PULSE 78–99; RESP 12–21; TEMP 36.4–36.8; O2SAT 97–100
--- NOTE | ~2022-08-19 | XR_ITS ---
EXAMINATION: XR chest 2V 08/19/2022 13:22 INDICATION: Intermittent chest pain. PROCEDURE: 2 view chest COMPARISON: Comparison to multiple prior studies sequentially, with oldest reviewed study dated 09/08. FINDINGS: The lungs are clear. The cardiomediastinal silhouette is within normal limits. There are no pleural effusions. There is no pneumothorax suspected. IMPRESSION: 1: NO ACUTE CARDIOPULMONARY DISEASE. Reviewed, dictated and finalized at location L. ASOUND TECHNICIAN
--- NOTE | 2022-08-19 12:30 | ECG_ITS ---
Measurements Intervals [place] Rate: 86 P: 43 [place]: 134 QRS: 90 QRSD: 83 T: 72 QT: 355 QTc: 426 Interpretive Statements SINUS RHYTHM MINIMAL Q WAVES- INFERIOR LEADS BASELINE ARTIFACT- I, II, AVR, AVF BORDERLINE ECG COMPARED TO ECG 06/11/2022 21:24:20 SINUS RHYTHM NOW PRESENT Electronically Signed On 08-19-2022 12:51:16 CAMPUS POLICE OFFICER by Steve Fernando D.O.
[2022-08-19 12:44] LABS: Basophils Percent Auto 0.5 % (0.2-1.2); Eosinophils Absolute Auto 0.2 K/mm3 (0-0.3); Eosinophils Percent Auto 2.8 % (0-4.4); Hematocrit 42.8 % (37.0-47.0); Hemoglobin 14.4 g/dL (12.0-15.0); Immature Granulocyte Absolute 0.02 K/mm3 (0.00-0.031); Immature Granulocyte Percent A 0.4 % (0-0.5); Lymphocytes Percent Auto 28.2 % (18.3-44.2); Mean Corpuscular HGB Conc 33.6 g/dl (32-36); Mean Corpuscular Hemoglobin 29.1 pg (26-34); Mean Corpuscular Volume 86.5 fl (80-100); Mean Platelet Volume 9.4 fl (7.4-10.4); Monocytes Absolute Auto 0.4 K/mm3 (0.1-0.6); Monocytes Percent Auto 7.2 % (2.6-8.5); Neutrophils Absolute Auto 3.5 K/mm3 (1.3-6.7); Neutrophils Percent Auto 60.9 % (45.5-73.1); Platelet Count Result 321 k/mm3 (150-375); Red Blood Count 4.95 M/mm3 (4.2-5.4); Red Cell Distribution Width 12.7 % (11.5-14.5); White Blood Count 5.7 K/mm3 (4.5-10.0)
[2022-08-19 12:55] LABS: Alanine Aminotransferase 20 U/L (6-35); Albumin Level 4.9 g/dL (3.5-5.1); Alkaline Phosphatase 73 U/L (38-126); Anion Gap 7 mmol/L (8-16); Aspartate Amino Transferase 21 U/L (14-36); Bilirubin,Total 0.6 mg/dL (0.2-1.3); Blood Urea Nitrogen 11 mg/dL (7-17); Carbon Dioxide 28 mmol/L (22-30); Chloride 105 mmol/L (98-107); Estimated CRCL calculation 137 ml/min; Estimated Glomerular Filt Rate > 60; Glucose 90 mg/dL (65-110); Lipase 56 U/L (23-300); Potassium 3.8 mmol/L (3.4-5.0); Sodium 140 mmol/L (137-145)
[2022-08-19 12:59] LABS: Prothrombin Time 12.6 Seconds (11.1-14.7)
[2022-08-19 13:00] LABS: Partial Thromboplastin Time 25.7 SECONDS (22.3-36.8)
[2022-08-19 13:06] LABS: Troponin I < 0.012 ng/mL (0.000-0.034)
--- NOTE | 2022-08-19 14:00 | ED.CHESTPAIN ---
HPI - Chest Pain General Chief Complaint: Chest Pain Stated Complaint: chest pain and arm pain Time Seen by Provider: 08/19/22 12:43 Source: patient Mode of arrival: ambulatory Limitations: no limitations History of Present Illness HPI narrative: Patient is a 21-year-old female who presents to the ED with report of chest pain. Patient reports she woke up at 4 AM to help her daughter and noticed pain in her left lower chest below her left breast. She states the pain has been intermittent since then, lasts for a few seconds at a time, occurs randomly, resolves on its own, no aggravation with exertion, no aggravation with deep breaths. Patient denies any dyspnea, nausea, vomiting, recent cough or cold symptoms, fevers. She has never had pain like this before. Denies any recent long distance travel, lower extremity pain or swelling. She did get on control 1 month ago. Related Data Home Medications Medication Instructions Recorded Confirmed vitamin with calcium 1 tablet PO DAILY 12/05/21 12/05/21 no.72-iron 27 mg-folic acid 1 mg tablet ( Vitamins Plus Low Iron) Allergies Allergy/AdvReac Type Severity Reaction Status Date / Time bee venom protein (honey bee) Allergy Hives Verified 06/11/22 21:30 [bees] Review of Systems Review of Systems: CONSTITUTIONAL: Denies fever, chills, or sweats. ENT: Denies rhinorrhea, congestion, sore throat. CARDIOVASCULAR: See HPI. RESPIRATORY: Denies cough or dyspnea. GASTROINTESTINAL: Denies abdominal pain, nausea, vomiting. MUSCULOSKELETAL: Denies back pain, joint pain, or myalgia. NEUROLOGIC: Denies headache, numbness, or weakness. All systems reviewed & are unremarkable except as noted in HPI and below PMFSH Past Medical History Medical History No pertinent past medical history Surgical History Surgical History No pertinent past surgical history Social History Social History Smoking status: Never smoker Exam Narrative: GENERAL: Well appearing, obese, non-toxic, in no acute distress. HEAD: Normocephalic, atraumatic. NECK: Supple. No adenopathy, no masses. BREAST: Normal appearing breasts. No lumps palpated. No nipple discharge or inversion. RESPIRATORY: Airway patent, respirations nonlabored. Clear to auscultation bilaterally, no rales, rhonchi, wheezing. CARDIOVASCULAR: Regular rate and rhythm without murmurs, rubs, or gallops. Peripheral pulses 2+ and equal bilaterally. ABDOMINAL: Soft, nontender, nondistended, no hepatosplenomegaly. Normoactive BS. MUSCULOSKELETAL: Moves all extremities. Strength/ROM intact without gross deformities. No chest wall tenderness to palpation. No edema. No calf tenderness. SKIN: Warm, dry, normal color. No rashes. NEURO: A&O X3. Speech clear. Cranial nerves II-XII grossly intact. Steady gait. No ataxic movements. PSYCHIATRIC: Somewhat flat affect. Normal interaction. Course Vital Signs Vital signs: Vital Signs Temperature 98.2 F 08/19/22 12:37 Pulse Rate 92 08/19/22 12:37 Respiratory Rate 12 08/19/22 12:37 Blood Pressure 124/77 08/19/22 12:37 Pulse Oximetry 100 08/19/22 12:37 Oxygen Delivery Room Air 08/19/22 12:37 Temperature 97.6 F 08/19/22 12:43 Pulse Rate 83 08/19/22 14:35 Respiratory Rate 17 08/19/22 14:46 Blood Pressure 111/65 08/19/22 14:46 Pulse Oximetry 100 08/19/22 14:46 Oxygen Delivery Room Air 08/19/22 14:06 MDM - Chest Pain MDM Narrative Medical decision making narrative: Patient's EKGs and labs are without significant high risk changes. EKG w/o acute ischemic changes. Troponin negative. D/t pain beginning very early this morning, delta Trop was not obtained. Cardiac risk factors reviewed. HEART score = 1 d/t BMI. Patient is felt likely low risk for ACS and
[2022-08-19] MEDS: ASPIRIN 81 MG CHEWABLE TABLET 324 MG PO (14:05)
[2022-08-19 14:41] LABS: D Dimer 0.33 ug/mL (<0.48)
== END 2022-08-19 15:08 | disposition home or self-care (01) ==
PROVIDERS: Emergency Medicine; Emergency Provider Physician Assistant
DX: R07.89 Other chest pain (principal)
CPT/HCPCS: 36415; 71046; 80053; 83690; 84484; 85025; 85380; 85610; 85730; 93005; 99284; A9270

== ENCOUNTER 2023-01-15 13:43 | Emergency (ER) | payer OTHER, SELFPAY ==
--- NOTE | ~2023-01-15 | US_ITS ---
EXAMINATION: US OB <= 14 weeks fetus INDICATION: 9wk preg, abd pain TECHNIQUE: Sonography of the pelvis was performed by transabdominal and transvaginal techniques. COMPARISON: None. RESULT: Uterus: 9.5 x 7.6 x 5.6 cm. Anteverted. Homogenous myometrium. Intrauterine gestational sac: Single present. Yolk sac: Present, not directly measured . Embryo: Single present. [place] rump length: 2.26 cm, corresponding gestational age 9 weeks, 0 days. Gestational heart rate: present 165 bpm. Subgestational hematoma: Absent. Right ovary: Not visualized. No adnexal mass. Left ovary: 3.2 x 2.6 x 2.1 cm. Vascular flow is present. Likely corpus luteal cyst. Pelvis free fluid: None. IMPRESSION: Single, live intrauterine gestation. Estimated Gestational Age: 9 weeks, 0 days by crown rump length. MATT by ultrasound 08/20/2023. Reviewed, dictated and finalized at location K. IMPRESSION: Single, live intrauterine gestation. Estimated Gestational Age: 9 weeks, 0 days by crown rump length. MATT by ultras ound 08/20/2023.
[2023-01-15 13:52] VITALS: BP 130/67; PULSE 90; RESP 16; TEMP 36.7; O2SAT 100
[2023-01-15 14:58] LABS: Basophils Percent Auto 0.3 % (0.2-1.2); Eosinophils Absolute Auto 0.1 K/mm3 (0-0.3); Hematocrit 38.3 % (37.0-47.0); Immature Granulocyte Absolute 0.05 K/mm3 (0.00-0.031); Immature Granulocyte Percent A 0.5 % (0-0.5); Lymphocytes Absolute Auto 1.64 K/mm3 (0.9-3.2); Lymphocytes Percent Auto 15.3 % (18.3-44.2); Mean Corpuscular HGB Conc 33.9 g/dl (32-36); Mean Corpuscular Volume 85.3 fl (80-100); Mean Platelet Volume 9.7 fl (7.4-10.4); Monocytes Absolute Auto 0.5 K/mm3 (0.1-0.6); Monocytes Percent Auto 4.9 % (2.6-8.5); Neutrophils Absolute Auto 8.4 K/mm3 (1.3-6.7); Platelet Count Result 286 k/mm3 (150-375); Red Blood Count 4.49 M/mm3 (4.2-5.4); Red Cell Distribution Width 12.9 % (11.5-14.5); White Blood Count 10.7 K/mm3 (4.5-10.0)
[2023-01-15 15:24] LABS: Alanine Aminotransferase 27 U/L (6-35); Albumin Level 4.3 g/dL (3.5-5.1); Alkaline Phosphatase 69 U/L (38-126); Anion Gap 9 mmol/L (8-16); Aspartate Amino Transferase 25 U/L (14-36); Bilirubin,Total 0.4 mg/dL (0.2-1.3); Blood Urea Nitrogen 9 mg/dL (7-17); Carbon Dioxide 21 mmol/L (22-30); Chloride 104 mmol/L (98-107); Estimated CRCL calculation 166 ml/min; Estimated Glomerular Filt Rate > 60; Glucose 85 mg/dL (65-110); Lipase 41 U/L (23-300); Potassium 3.7 mmol/L (3.4-5.0); Sodium 134 mmol/L (137-145)
[2023-01-15 15:53] LABS: Appearance Urine Cloudy (Clear); Bacteria Urine 2+ /hpf; Bilirubin Urine Negative (Negative); Blood Urine Negative (Negative); Color Urine Yellow (Yellow); Glucose Urine UA Negative (Negative); Ketones Urine 3+ mg/dL (Negative); Leukocyte Esterase Ur 1+ LEU/UL (Negative); Nitrate Urine Negative (Negative); Protein Urine Negative (Negative); RBC Urine 0-2 /hpf (0-2); Specific Grav Ur 1.024 (1.001-1.035); Squamous Epithelial Cell Urine Few /hpf (Few)
[2023-01-15 16:06] LABS: Add Urine Microscopic? YES
[2023-01-15] MEDS: ACETAMINOPHEN 500 MG TABLET PO (16:09)
--- NOTE | 2023-01-15 16:40 | ED.ABDPAIN ---
HPI - Abdominal Pain General Chief Complaint: Abdominal Pain Stated Complaint: cramps 9 weeks , bleeding Time Seen by Provider: 01/15/23 14:49 History of Present Illness HPI narrative: 22-year-old female who is 9 weeks presents here with lower abdominal pain and some low back pain, started few days ago, no vaginal bleeding Related Data Home Medications Medication Instructions Recorded Confirmed vitamin with calcium 1 tablet PO DAILY 12/05/21 12/05/21 no.72-iron 27 mg-folic acid 1 mg tablet ( Vitamins Plus Low Iron) Allergies Allergy/AdvReac Type Severity Reaction Status Date / Time bee venom protein (honey bee) Allergy Hives Verified 06/11/22 21:30 [bees] Review of Systems Review of Systems: CONST: No fever. HEENT: No sore throat C/V: No chest pain RESP: No cough GI: Reports abdominal pain : No vaginal bleeding M/S: No joint pain. SKIN: No rash. NEURO: [No headache or focal numbness or weakness] PSYCH: [No depression] [facility] Past Medical History Medical History No pertinent past medical history Surgical History Surgical History No pertinent past surgical history Social History Social History Smoking status: Never smoker Exam Narrative: EXAMINATION OF ORGAN SYSTEMS/BODY AREAS: Constitutional: Vital signs per nursing GENERAL:[No acute distress, non-toxic appearing.] HEAD: Normal with no signs of head trauma. EYES: EOMI, conjunctiva normal ENT: Hearing grossly intact LUNGS: Nonlabored breathing. HEART: [Regular rate and rhythm] ABD: [Soft], slight suprapubic tenderness EXT: Normal range of motion SKIN: [No rashes or lesions.] NEURO: [Alert and oriented x 3. No gross focal sensory or strength deficits.] PSYCH: Normal affect Course Vital Signs Vital signs: Vital Signs Temperature 98.1 F 01/15/23 13:52 Pulse Rate 90 01/15/23 13:52 Respiratory Rate 16 01/15/23 13:52 Blood Pressure 130/67 01/15/23 13:52 Pulse Oximetry 100 01/15/23 13:52 Oxygen Delivery Room Air 01/15/23 13:52 Temperature 98.1 F 01/15/23 13:52 Pulse Rate 90 01/15/23 13:52 Respiratory Rate 16 01/15/23 13:52 Blood Pressure 130/67 01/15/23 13:52 Pulse Oximetry 100 01/15/23 13:52 Oxygen Delivery Room Air 01/15/23 13:52 MDM - Abdominal Pain MDM Narrative Medical decision making narrative: 22-year-old year-old patient G2, P1 at 9 weeks presenting with suprapubic and low back pain. Bedside ultrasound and was able to visualize a gestational sac but no obvious fetus, given this I did order a radiology ultrasound which did confirm intrauterine , single live heart rate 160. Urinalysis is obtained and positive for signs of infection. Urine culture sent. Patient started on ceftriaxone here and Keflex, and strongly advised to return for any increasing or worsening pain, fevers or vomiting. They expressed understanding of instructions and is discharged in stable condition. 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 Lab Data 01/15/23 14:42 01/15/23 14:42 Labs: Lab Results 01/15/23 01/15/23 01/15/23 Range/Units 14:42 14:42 15:44 WBC 10.7 H (4.5-10.0) K/mm3 RBC 4.49 (4.2-5.4) M/mm3 Hgb 13.0 (12.0-15.0) g/dL Hct 38.3 (37.0-47.0) % MCV 85.3 (80-100) fl MCH 29.0 (26-34) pg MCHC 33.9 (32-36) g/dl RDW 12.9 (11.5-14.5) % Plt Count 286 (150-375) k/mm3 MPV 9.7 (7.4-10.4) fl Immature Gran % (Auto) 0.5 (0-0.5) % Neut % (Auto) 78.0 H (45.5-73.1) % Lymph % (Auto) 15.3 L (18.3-44.2) % Emmet % (Auto) 4.9 (2.6-8.5) % Eos % (Auto) 1.0 (0-4.4) % Baso % (Auto) 0.3 (0.2-1.2) % Lymph # (Auto) 1.64 (0.9-3.2) K/mm3
[2023-01-15] MEDS: LACTATED RINGERS 1,000 ML 999 ML IV CONT (16:49)
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
--- NOTE | 2023-01-25 08:59 | PC.NURSE ---
late entry 01/15/23 1720 rocephin infused 1850 ns bolus infused
== END 2023-01-15 17:45 | disposition home or self-care (01) ==
PROVIDERS: Emergency Provider Emergency Medicine
DX: O23.41 Unspecified infection of urinary tract in pregnancy, first trimester (principal); N39.0 Urinary tract infection, site not specified; Z3A.09 9 weeks gestation of pregnancy
CPT/HCPCS: 36415; 76801; 80053; 81001; 81025; 83690; 84702; 85025; 85461; 86850; 86900; 86901; 87086; 87088; 96361; 96365; 99284; A9270; J0696; J7120

== ENCOUNTER 2023-03-03 01:13 | Emergency (ER) | payer OTHER, SELFPAY ==
[2023-03-03 01:17] VITALS: BP 112/69; PULSE 100; RESP 18; TEMP 36.7; O2SAT 100
--- NOTE | 2023-03-03 01:21 | ECG_ITS ---
Measurements Intervals [place] Rate: 87 P: 52 [place]: 145 QRS: 74 QRSD: 83 T: 40 QT: 352 QTc: 424 Interpretive Statements SINUS RHYTHM NORMAL ECG COMPARED TO ECG 08/19/2022 12:33:05 NO SIGNIFICANT CHANGES Electronically Signed On 03-03-2023 8:57:18 CDT by Steve Fernando D.O.
[2023-03-03 01:34] LABS: Basophils Percent Auto 0.3 % (0.2-1.2); Eosinophils Absolute Auto 0.3 K/mm3 (0-0.3); Eosinophils Percent Auto 2.1 % (0-4.4); Hematocrit 39.4 % (37.0-47.0); Hemoglobin 13.3 g/dL (12.0-15.0); Immature Granulocyte Absolute 0.05 K/mm3 (0.00-0.031); Immature Granulocyte Percent A 0.4 % (0-0.5); Lymphocytes Absolute Auto 1.72 K/mm3 (0.9-3.2); Lymphocytes Percent Auto 13.7 % (18.3-44.2); Mean Corpuscular HGB Conc 33.8 g/dl (32-36); Mean Corpuscular Hemoglobin 29.6 pg (26-34); Mean Corpuscular Volume 87.6 fl (80-100); Mean Platelet Volume 9.7 fl (7.4-10.4); Monocytes Absolute Auto 0.6 K/mm3 (0.1-0.6); Monocytes Percent Auto 4.6 % (2.6-8.5); Neutrophils Absolute Auto 9.9 K/mm3 (1.3-6.7); Neutrophils Percent Auto 78.9 % (45.5-73.1); Platelet Count Result 267 k/mm3 (150-375); Red Cell Distribution Width 12.6 % (11.5-14.5); White Blood Count 12.6 K/mm3 (4.5-10.0)
[2023-03-03 01:49] LABS: Alanine Aminotransferase 19 U/L (6-35); Alkaline Phosphatase 67 U/L (38-126); Anion Gap 7 mmol/L (8-16); Aspartate Amino Transferase 18 U/L (14-36); Bilirubin,Total 0.4 mg/dL (0.2-1.3); Blood Urea Nitrogen 5 mg/dL (7-17); Carbon Dioxide 23 mmol/L (22-30); Chloride 104 mmol/L (98-107); Estimated CRCL calculation 167 ml/min; Estimated Glomerular Filt Rate > 60; Glucose 101 mg/dL (65-110); Sodium 134 mmol/L (137-145)
--- NOTE | 2023-03-03 02:53 | PC.NURSE ---
Patient's pushed her out of ER doors in wheelchair and patient was ambulatory from wheelchair into car. Patient left with her .
== END 2023-03-03 03:04 | disposition left against medical advice (07) ==
LOC: ANHED 02:59
PROVIDERS: Emergency Provider Emergency Medicine
DX: R55 Syncope and collapse (principal)
CPT/HCPCS: 36415; 80053; 85025; 93005; 99199

== ENCOUNTER 2023-03-23 10:55 | Emergency (ER) | payer OTHER, SELFPAY ==
--- NOTE | ~2023-03-23 | US_ITS ---
EXAMINATION: US OB limited DATE: 03/23/2023 13:24 INDICATION: Abdominal cramping and vaginal discharge during second trimester TECHNIQUE: Real-time ultrasound of the pelvis was performed. The interpreting radiologist was not pre sent for the study. COMPARISON: None. FINDINGS: There is a single living fetus in vertex presentation. The placenta is anterior and not low-lying. F etal heart rate is 147 beats per minute (bpm). The amniotic fluid volume is subjectively normal. Bila teral ovaries were unable to be visualized. No free fluid in the pelvis. IMPRESSION: 1. Single living fetus in vertex presentation with heart rate of 147 bpm. Reviewed, dictated and finalized at location A.
[2023-03-23 11:07] VITALS: BP 117/89; PULSE 104; RESP 18; TEMP 36.6; O2SAT 100
--- NOTE | 2023-03-23 12:49 | ED.PREGNANCY ---
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 Patient is G2, P1 and currently approximately 18 weeks gestation. She sees OB with [facility]. She reports having intermittent bilateral lower abdominal cramping over the last 1 week. She has been taking Tylenol intermittently for this. Today, she also reported having a small amount of milky white thin vaginal discharge. She became concerned and prompted here. Patient denies any vaginal bleeding. Reports occasional nausea, denies vomiting. Denies diarrhea or constipation. Denies dysuria, hematuria. Denies fever. Related Data Home Medications Medication Instructions Recorded Confirmed vitamin with calcium 1 tablet PO DAILY 12/05/21 12/05/21 no.72-iron 27 mg-folic acid 1 mg tablet ( Vitamins Plus Low Iron) Allergies Allergy/AdvReac Type Severity Reaction Status Date / Time bee venom protein (honey bee) Allergy Hives Verified 03/03/23 01:14 [bees] Review of Systems Review of Systems: CONSTITUTIONAL: Denies fever, chills, or sweats. CARDIOVASCULAR: Denies chest pain. RESPIRATORY: Denies dyspnea. GASTROINTESTINAL: See HPI. GENITOURINARY: See HPI. SKIN: Denies rash or itching. MUSCULOSKELETAL: Denies back pain, joint pain, or myalgia. All systems reviewed & are unremarkable except as noted in HPI and below PMFSH Past Medical History Medical History No pertinent past medical history Surgical History Surgical History No pertinent past surgical history Social History Social History Smoking status: Never smoker Exam Narrative: GENERAL: Well appearing, obese with BMI of 31.8, non-toxic, in no acute distress. HEAD: Normocephalic, atraumatic. NECK: Supple. No adenopathy, no masses. RESPIRATORY: Airway patent, respirations nonlabored. Clear to auscultation bilaterally, no rales, rhonchi, wheezing. CARDIOVASCULAR: Regular rate and rhythm without murmurs, rubs, or gallops. Radial pulses 2+ and equal bilaterally. ABDOMINAL: Soft, mild tenderness throughout bilateral lower quadrants, no significant focal tenderness. Uterus gravid. Nondistended, no hepatosplenomegaly. Normoactive BS. MUSCULOSKELETAL: Moves all extremities. Strength/ROM intact without gross deformities. SKIN: Warm, dry, normal color. No rashes. NEURO: A&O X3. Speech clear. Cranial nerves II-XII grossly intact. Steady gait. No ataxic movements. PSYCHIATRIC: Mildly anxious. Normal interaction. Course Vital Signs Vital signs: Vital Signs Temperature 97.9 F 03/23/23 11:07 Pulse Rate 104 H 03/23/23 11:07 Respiratory Rate 18 03/23/23 11:07 Blood Pressure 117/89 03/23/23 11:07 Pulse Oximetry 100 03/23/23 11:07 Oxygen Delivery Room Air 03/23/23 11:07 Temperature 97.9 F 03/23/23 11:07 Pulse Rate 86 03/23/23 15:43 Respiratory Rate 18 03/23/23 15:43 Blood Pressure 118/80 03/23/23 15:43 Pulse Oximetry 100 03/23/23 15:43 Oxygen Delivery Room Air 03/23/23 11:07 MDM - OB/Uterine Contractions MDM Narrative Medical decision making narrative: Patient presented to ED at 18 weeks gestation, intermittent lower abdominal cramping for the last 1 week, white vaginal discharge today. Denying vaginal bleeding. Vitals stable. Afebrile. CBC with minimal leukocytosis of 11.2. Patient otherwise denying infectious symptoms. CMP unremarkable. UA negative. Ultrasound showed a live IUP, good heart tones. Patient reports she tested negative for STDs a
[2023-03-23 12:57] LABS: Basophils Percent Auto 0.3 % (0.2-1.2); Eosinophils Absolute Auto 0.3 K/mm3 (0-0.3); Eosinophils Percent Auto 2.6 % (0-4.4); Hematocrit 38.7 % (37.0-47.0); Hemoglobin 12.9 g/dL (12.0-15.0); Immature Granulocyte Absolute 0.05 K/mm3 (0.00-0.031); Immature Granulocyte Percent A 0.4 % (0-0.5); Lymphocytes Absolute Auto 1.58 K/mm3 (0.9-3.2); Lymphocytes Percent Auto 14.1 % (18.3-44.2); Mean Corpuscular HGB Conc 33.3 g/dl (32-36); Mean Corpuscular Hemoglobin 29.6 pg (26-34); Mean Corpuscular Volume 88.8 fl (80-100); Mean Platelet Volume 10.1 fl (7.4-10.4); Monocytes Absolute Auto 0.6 K/mm3 (0.1-0.6); Monocytes Percent Auto 5.5 % (2.6-8.5); Neutrophils Absolute Auto 8.6 K/mm3 (1.3-6.7); Neutrophils Percent Auto 77.1 % (45.5-73.1); Platelet Count Result 269 k/mm3 (150-375); Red Blood Count 4.36 M/mm3 (4.2-5.4); Red Cell Distribution Width 12.8 % (11.5-14.5); White Blood Count 11.2 K/mm3 (4.5-10.0)
[2023-03-23 12:59] LABS: Appearance Urine Clear (Clear); Bilirubin Urine Negative (Negative); Blood Urine Negative (Negative); Color Urine Yellow (Yellow); Glucose Urine UA Negative (Negative); Ketones Urine Negative (Negative); Leukocyte Esterase Ur Negative LEU/UL (Negative); Nitrate Urine Negative (Negative); Protein Urine Negative (Negative); Specific Grav Ur 1.013 (1.001-1.035); Urobilinogen Urine 0.2 mg/dL (<2.0)
--- NOTE | 2023-03-23 13:04 | PC.NURSE ---
pt taken for US at this time
[2023-03-23 13:06] LABS: Add Urine Microscopic? NO
[2023-03-23 13:11] LABS: Alanine Aminotransferase 17 U/L (6-35); Albumin Level 3.8 g/dL (3.5-5.1); Alkaline Phosphatase 63 U/L (38-126); Anion Gap 7 mmol/L (8-16); Aspartate Amino Transferase 18 U/L (14-36); Bilirubin,Total 0.3 mg/dL (0.2-1.3); Blood Urea Nitrogen 7 mg/dL (7-17); Carbon Dioxide 24 mmol/L (22-30); Chloride 103 mmol/L (98-107); Estimated CRCL calculation 169 ml/min; Estimated Glomerular Filt Rate > 60; Glucose 87 mg/dL (65-110); Potassium 3.7 mmol/L (3.4-5.0); Sodium 134 mmol/L (137-145)
[2023-03-23 15:05] LABS: Trichomonas Vag PCR NOT DETECTED (NOT DETECTE)
[2023-03-23 15:43] VITALS: BP 118/80; PULSE 86; RESP 18; O2SAT 100
[2023-03-23 16:39] LABS: Chlamydia trachomatis NOT DETECTED (NOT DETECTE); Neisseria gonorrhoeae PCR NOT DETECTED (NOT DETECTE)
== END 2023-03-23 15:45 | disposition home or self-care (01) ==
PROVIDERS: Emergency Provider Physician Assistant
DX: O26.892 Other specified pregnancy related conditions, second trimester (principal); R10.32 Left lower quadrant pain; R10.31 Right lower quadrant pain; O99.891 Other specified diseases and conditions complicating pregnancy; N89.8 Other specified noninflammatory disorders of vagina; Z3A.18 18 weeks gestation of pregnancy
CPT/HCPCS: 36415; 76815; 80053; 81003; 85025; 87491; 87591; 87661; 99284

== ENCOUNTER 2023-04-18 01:14 | Emergency (ER) | payer OTHER, SELFPAY ==
[2023-04-18 01:19] VITALS: BP 129/82; PULSE 74; RESP 16; TEMP 36.1; O2SAT 99
--- NOTE | 2023-04-18 02:09 | ED.EAR ---
HPI - Ear Problem General Chief complaint: Ear Stated complaint: Right ear pain Time Seen by Provider: 04/18/23 01:27 History of Present Illness HPI Narrative: Patient presents the emergency department concern for right ear pain and ringing. She has also had some sinus congestion. Symptoms of been ongoing for the past couple days and getting worse. She is also around small children regularly. Denies fevers chills. Denies sore throat. Denies cough shortness of breath and abdominal pain. She is accompanied by her friend. Patient is very pleasant and her exam is grossly benign. Bilateral TMs opaque Related Data Home Medications Medication Instructions Recorded Confirmed vitamin with calcium 1 tablet PO DAILY 12/05/21 12/05/21 no.72-iron 27 mg-folic acid 1 mg tablet ( Vitamins Plus Low Iron) Allergies Allergy/AdvReac Type Severity Reaction Status Date / Time bee venom protein (honey bee) Allergy Hives Verified 03/03/23 01:14 [bees] Review of Systems Review of Systems: Review of systems negative except what is documented in the HPI [facility] Past Medical History Medical History No pertinent past medical history Surgical History Surgical History No pertinent past surgical history Social History Social History Smoking status: Never smoker Exam Narrative: GENERAL: Well-appearing, well-nourished, and in no acute distress. HEAD: Normocephalic, atraumatic. ENT: Nares clear, no rhinorrhea or epistaxis. Mucous membranes moist. NECK: Normal ROM CHEST: No respiratory distress. EXTREMITIES: Normal range of motion. SKIN: Warm, dry, no rash. NEURO: No focal deficits. Alert and oriented x3. PSYCH: Normal mood and affect. TM: opaque bilaterally with white patches Course Vital Signs Vital signs: Vital Signs Temperature 36.1 C L 04/18/23 01:19 Pulse Rate 74 04/18/23 01:19 Respiratory Rate 16 04/18/23 01:19 Blood Pressure 129/82 04/18/23 01:19 Pulse Oximetry 99 04/18/23 01:19 Oxygen Delivery Room Air 04/18/23 01:19 Temperature 36.1 C L 04/18/23 01:19 Pulse Rate 74 04/18/23 01:19 Respiratory Rate 16 04/18/23 01:19 Blood Pressure 129/82 04/18/23 01:19 Pulse Oximetry 99 04/18/23 01:19 Oxygen Delivery Room Air 04/18/23 01:19 Medical Decision Making Vital Signs Vital Signs: Vital Signs Temperature 36.1 C L 04/18/23 01:19 Pulse Rate 74 04/18/23 01:19 Respiratory Rate 16 04/18/23 01:19 Blood Pressure 129/82 04/18/23 01:19 Pulse Oximetry 99 04/18/23 01:19 Oxygen Delivery Room Air 04/18/23 01:19 Temperature 36.1 C L 04/18/23 01:19 Pulse Rate 74 04/18/23 01:19 Respiratory Rate 16 04/18/23 01:19 Blood Pressure 129/82 04/18/23 01:19 Pulse Oximetry 99 04/18/23 01:19 Oxygen Delivery Room Air 04/18/23 01:19 Discharge Plan Discharge Clinical Impression: Acute ear infection Qualifiers: Laterality: right Qualified Code(s): H66.91 - Otitis media, unspecified, right ear Qualifiers: Weeks of gestation: 22 weeks Qualified Code(s): Z3A.22 - 22 weeks gestation of Patient Disposition: Home, Self-Care Condition: Stable Instructions: Antibiotic Form, Earache (ED) Additional Instructions: Tylenol for pain Benadryl for pressure type discomfort and congestion May add DayQuil as needed for severe symptoms Finish amoxicillin Prescriptions: New amoxicillin 500 mg capsule 500 mg PO Q12H Qty: 14 0RF No Action albuterol sulfate 90 mcg/actuation HFA aerosol inhaler 1 inh inhalation QID PRN (Reason: shortness of breath or wheezing) Qty: 6.7 0RF cephalexin 500 mg capsule 500 mg PO Q6H 7 Days Qty: 28 0RF Vitamin Plus Low Iron 27 mg iron- 1 mg tablet
== END 2023-04-18 02:22 | disposition home or self-care (01) ==
PROVIDERS: Emergency Provider Emergency Medicine
DX: O26.892 Other specified pregnancy related conditions, second trimester (principal); H66.91 Otitis media, unspecified, right ear; Z3A.22 22 weeks gestation of pregnancy
CPT/HCPCS: 99283

== ENCOUNTER 2023-06-12 17:58 | Emergency (ER) | payer OTHER, SELFPAY ==
--- NOTE | 2023-06-12 18:00 | ECG_ITS ---
Measurements Intervals [place] Rate: 102 P: 48 [place]: 131 QRS: 62 QRSD: 84 T: 38 QT: 323 QTc: 421 Interpretive Statements SINUS TACHYCARDIA ABNORMAL RHYTHM ECG COMPARED TO ECG 03/03/2023 01:25:43 SINUS TACHYCARDIA NOW PRESENT Electronically Signed On 06-13-2023 13:37:37 CONCESSION WORKER by Dorinda Barcenas M.D.
[2023-06-12 18:02] VITALS: BP 140/79; PULSE 99; RESP 18; TEMP 36.6; O2SAT 98
[2023-06-12 18:17] VITALS: BP 143/76; PULSE 101; RESP 18; O2SAT 99
[2023-06-12 18:20] LABS: Basophils Percent Auto 0.2 % (0.2-1.2); Eosinophils Absolute Auto 0.3 K/mm3 (0-0.3); Eosinophils Percent Auto 2.3 % (0-4.4); Hematocrit 37.9 % (37.0-47.0); Hemoglobin 12.5 g/dL (12.0-15.0); Immature Granulocyte Percent A 0.7 % (0-0.5); Lymphocytes Absolute Auto 1.79 K/mm3 (0.9-3.2); Lymphocytes Percent Auto 13.2 % (18.3-44.2); Mean Corpuscular Hemoglobin 29.1 pg (26-34); Mean Corpuscular Volume 88.3 fl (80-100); Mean Platelet Volume 10.2 fl (7.4-10.4); Monocytes Absolute Auto 0.7 K/mm3 (0.1-0.6); Neutrophils Absolute Auto 10.7 K/mm3 (1.3-6.7); Neutrophils Percent Auto 78.6 % (45.5-73.1); Platelet Count Result 230 k/mm3 (150-375); Red Blood Count 4.29 M/mm3 (4.2-5.4); White Blood Count 13.6 K/mm3 (4.5-10.0)
[2023-06-12 18:30] LABS: Alanine Aminotransferase 18 U/L (6-35); Albumin Level 3.7 g/dL (3.5-5.1); Alkaline Phosphatase 94 U/L (38-126); Anion Gap 7 mmol/L (8-16); Aspartate Amino Transferase 19 U/L (14-36); Bilirubin,Total 0.3 mg/dL (0.2-1.3); Blood Urea Nitrogen 8 mg/dL (7-17); Calcium 9.4 mg/dL (8.4-10.2); Carbon Dioxide 23 mmol/L (22-30); Chloride 105 mmol/L (98-107); Estimated Glomerular Filt Rate > 60; Glucose 111 mg/dL (65-110); Lipase 41 U/L (23-300); Potassium 3.4 mmol/L (3.4-5.0); Sodium 135 mmol/L (137-145)
[2023-06-12 18:34] VITALS: PULSE 97; O2SAT 98
[2023-06-12 18:36] LABS: Prothrombin Time 13.4 Seconds (11.1-14.7)
[2023-06-12 18:37] LABS: Partial Thromboplastin Time 23.6 SECONDS (22.3-36.8)
[2023-06-12 18:42] LABS: Troponin I < 0.012 ng/mL (0.000-0.034)
--- NOTE | 2023-06-12 18:57 | ED.CHESTPAIN ---
HPI - Chest Pain General Chief Complaint: Chest Pain Stated Complaint: 30 weeks preg, LEFT sided CP Time Seen by Provider: 06/12/23 18:55 Source: patient and family ( mother) Limitations: no limitations History of Present Illness HPI narrative: this is a 21-year-old female here is approximately 30 weeks (30w2d by reported MATT 08/19/23 though she is scheduled for a section performed on 08/12/2023). This evening while watching television she points to her that left-sided chest pain rated 5/10 in severity. She initially described at triage that was pleuritic though she does not endorse that he this time. She states it was worse with her. She denies any associated shortness of breath. This was associated also with abdominal cramping approximately 4/10 severity. She experienced a similar episode that lasted approximately 5 minutes a few months ago though this episode lasted 25-30 minutes. no personal or family history of DVT or PE. No report of bilateral or unilateral leg edema. She has a history of preeclampsia during her previous for which she takes 81 mg of aspirin during this . She has seen multiple presents during this . She denies any recent cough or fevers. No leakage of fluid or contractions. She continues to endorse movement. Related Data Home Medications Medication Instructions Recorded Confirmed vitamin with calcium 1 tablet PO DAILY 12/05/21 12/05/21 no.72-iron 27 mg-folic acid 1 mg tablet ( Vitamins Plus Low Iron) Allergies Allergy/AdvReac Type Severity Reaction Status Date / Time bee venom protein (honey bee) Allergy Hives Verified 03/03/23 01:14 [bees] PMFSH Past Medical History Medical History (Updated 06/13/23 @ 00:00 by William Shepherd) History of pre-eclampsia in prior , currently No pertinent past medical history Surgical History Surgical History No pertinent past surgical history Social History Social History Smoking status: Never smoker Exam Narrative: GENERAL: Well-appearing, well-nourished, and in no acute distress. HEAD: Normocephalic, atraumatic. EYES: Non injected, non icteric ENT: Nares clear, no rhinorrhea or epistaxis. NECK: Supple. CHEST: Clear to auscultation. No respiratory distress. lungs are clear to auscultation. HEART: Regular rate and rhythm. . ABDOMEN: Soft, nondistended. EXTREMITIES: Normal range of motion. No edema. legs are grossly symmetric. When measured 5 cm from the tibial tuberosity right leg circumference is 12 cm left leg circumference is 13 cm SKIN: Warm, dry, no rash. NEURO: No focal deficits. Alert and oriented x3. PSYCH: Normal mood and affect. Course Vital Signs Vital signs: Vital Signs Temperature 97.9 F 06/12/23 18:02 Pulse Rate 99 06/12/23 18:02 Respiratory Rate 18 06/12/23 18:02 Blood Pressure 140/79 06/12/23 18:02 Pulse Oximetry 98 06/12/23 18:02 Oxygen Delivery Room Air 06/12/23 18:02 Temperature 97.9 F 06/12/23 18:02 Pulse Rate 89 06/12/23 20:45 Respiratory Rate 17 06/12/23 20:45 Blood Pressure 115/71 06/12/23 20:45 Pulse Oximetry 96 06/12/23 20:45 Oxygen Delivery Room Air 06/12/23 18:34 MDM - Chest Pain MDM Narrative Medical decision making narrative: This is a 22-year-old 001 female who is 30w2d by reported MATT 08/19/23 though she is scheduled for a section performed on 08/12/2023, presenting with report of an episode chest pain associated with some abdominal pain. patient's lungs are clear to auscultation bilaterally. she was noted to be tachycardic on her EKG and is persistently borderline tachycardic in the high 90s on to document vital signs and on my bedside examination. L&D nurse at bedside performing monitoring.
[2023-06-12 19:21] VITALS: BP 118/87; PULSE 106; RESP 17; O2SAT 97
[2023-06-12 19:50] LABS: D Dimer 0.58 ug/mL (<0.48)
[2023-06-12 20:09] LABS: Influenza A QL RT-PCR Negative (Negative); Influenza B QL RT-PCR Negative (Negative); RSV RNA, RT-PCR Negative (Negative); SARS-CoV-2 RNA PCR Negative (Negative)
[2023-06-12] MEDS: ACETAMINOPHEN 325 MG TABLET 650 MG PO (20:42)
[2023-06-12 20:45] VITALS: BP 115/71; PULSE 89; RESP 17; O2SAT 96
== END 2023-06-12 20:45 | disposition home or self-care (01) ==
PROVIDERS: Emergency Medicine; Emergency Provider Student in an Organized Health Care Education/Training Program
DX: O26.891 Other specified pregnancy related conditions, first trimester (principal); R07.9 Chest pain, unspecified; R10.9 Unspecified abdominal pain; Z3A.30 30 weeks gestation of pregnancy; Z20.822 Contact with and (suspected) exposure to COVID-19
CPT/HCPCS: 36415; 80053; 83690; 84484; 85025; 85380; 85610; 85730; 87637; 93005; 99284; A9270

== ENCOUNTER 2023-06-21 02:19 | Emergency (ER) | payer OTHER, SELFPAY ==
[2023-06-21 02:23] VITALS: BP 122/67; PULSE 93; RESP 14; TEMP 37; O2SAT 99
[2023-06-21 02:34] VITALS: BP 121/71; PULSE 95; RESP 16; TEMP 36.8; O2SAT 99
[2023-06-21 04:52] VITALS: BP 121/74; PULSE 77; RESP 16; O2SAT 98
--- NOTE | 2023-06-21 04:55 | ED.GENADULT ---
HPI - General Adult General Chief complaint: Dental/Oral Stated complaint: jaw pain Time Seen by Provider: 06/21/23 02:49 History of Present Illness HPI narrative: This is a 22-year-old female presenting with dental pain. Patient has pain in her upper right molars. She has been taking Tylenol with minimal relief. She has not scheduled appointment to see a dentist. No swelling, difficulty swallowing fever chills nausea vomiting diarrhea. Patient is currently 31 weeks . She has no complaints at this time. Related Data Home Medications Medication Instructions Recorded Confirmed vitamin with calcium 1 tablet PO DAILY 12/05/21 12/05/21 no.72-iron 27 mg-folic acid 1 mg tablet ( Vitamins Plus Low Iron) Allergies Allergy/AdvReac Type Severity Reaction Status Date / Time bee venom protein (honey bee) Allergy Hives Verified 03/03/23 01:14 [bees] [facility] Past Medical History Medical History History of pre-eclampsia in prior , currently No pertinent past medical history Surgical History Surgical History No pertinent past surgical history Social History Social History Smoking status: Never smoker Exam Narrative: APPEARANCE: No apparent distress. Head: Poor dentition, no evidence of abscess/tiffany's angina EYES: EOMI, NOSE: Atraumatic NECK: Trachea midline RESPIRATORY: No increased rate of breathing CARDIOVASCULAR: RRR, ABDOMINAL: Non-distended MUSCULOSKELETAl: No obvious deformities NEURO: Alert. Moving 4/4 extremities SKIN:: Warm, dry. Normal color PSYCHIATRIC: Normal affect Course Vital Signs Vital signs: Vital Signs Temperature 98.6 F 06/21/23 02:23 Pulse Rate 93 06/21/23 02:23 Respiratory Rate 14 06/21/23 02:23 Blood Pressure 122/67 06/21/23 02:23 Pulse Oximetry 99 06/21/23 02:23 Oxygen Delivery Room Air 06/21/23 02:23 Temperature 98.3 F 06/21/23 02:34 Pulse Rate 77 06/21/23 04:52 Respiratory Rate 16 06/21/23 04:52 Blood Pressure 121/74 06/21/23 04:52 Pulse Oximetry 98 06/21/23 04:52 Oxygen Delivery Room Air 06/21/23 02:23 Procedures Nerve Block Nerve Block 1: Nerve block date: 06/21/23 Nerve block time: 04:57 Local Anesthetic: lidocaine 2% and with epi Amount of anesthesia used (mL): 3 Side: right Intraoral Nerve Block: superior alveolar Procedure Successful: Yes Patient Tolerated Procedure: well Complications: none Medical Decision Making MDM Narrative Medical decision making narrative: -Course: 22-year-old female presenting with dental pain. Patient is and pain medication options are limited. She has been taking Tylenol. Dental block was performed she was discharged dental follow-up. -DDX includes but is not limited to: Dental caries, was 90 pain, dental infection -Co-morbidities complicating care: -Social determinants of health: Works at [employer] -Procedures: Superior alveolar block using 2% lidocaine -Shared decision making / Disposition: Discharge Vital Signs Vital Signs: Vital Signs Temperature 98.6 F 06/21/23 02:23 Pulse Rate 93 06/21/23 02:23 Respiratory Rate 14 06/21/23 02:23 Blood Pressure 122/67 06/21/23 02:23 Pulse Oximetry 99 06/21/23 02:23 Oxygen Delivery Room Air 06/21/23 02:23 Temperature 98.3 F 06/21/23 02:34 Pulse Rate 77 06/21/23 04:52 Respiratory Rate 16 06/21/23 04:52 Blood Pressure 121/74 06/21/23 04:52 Pulse Oximetry 98 06/21/23 04:52 Oxygen Delivery Room Air 06/21/23 02:23 Discharge Plan Discharge Clinical Impression: Tooth ache Patient Disposition: Home, Self-Care Condition: Stable Instructions: Antibiotic Form, Toothache (ED)
--- NOTE | 2023-06-21 05:03 | PC.NURSE ---
Patient stated that once EDP Dr. Wilder administered Lido/Epi she began to feel jittery and shaky. Per EDP Dr. Wilder monitor patient for 15-30 minutes.
--- NOTE | 2023-06-21 05:27 | PC.NURSE ---
Upon reassessing the patient she stated that she feels better and is ready to go. When asked if she still felt shaky and jittery the patient stated not as bad as before .
== END 2023-06-21 05:28 | disposition home or self-care (01) ==
PROVIDERS: Emergency Provider Emergency Medicine
DX: O26.893 Other specified pregnancy related conditions, third trimester (principal); K08.89 Other specified disorders of teeth and supporting structures; Z3A.31 31 weeks gestation of pregnancy
CPT/HCPCS: 64999; 99282

== ENCOUNTER 2023-07-01 13:52 | Observation (INO) | payer OTHER, SELFPAY ==
[2023-07-01 14:18] VITALS: BP 125/80; PULSE 94
[2023-07-01 14:30] VITALS: BP 109/70; PULSE 90
[2023-07-01 14:47] LABS: Appearance Urine Clear (Clear); Bilirubin Urine Negative (Negative); Blood Urine Negative (Negative); Color Urine Yellow (Yellow); Glucose Urine UA Negative (Negative); Ketones Urine Negative (Negative); Leukocyte Esterase Ur Negative LEU/UL (NEGATIVE); Nitrate Urine Negative (Negative); Protein Urine Negative (Negative); Specific Grav Ur 1.013 (1.001-1.035); Urobilinogen Urine 0.2 mg/dL (<2.0)
[2023-07-01 14:52] LABS: Add Urine Microscopic? NO
--- NOTE | 2023-08-01 09:08 | PM.OBTRLD ---
OB - Triage/Final Diagnosis Visit Information Comments/Additional reasons for admission: I have assessed the risk for this patient, Ifrah Brady, and determined that she would benefit from observation care. Evaluation Laboratory results: Laboratory Tests 07/01/23 14:28 Urine Color Yellow Urine Appearance Clear Urine pH 7.0 Ur Specific Dexter 1.013 Urine Protein Negative Urine Glucose (UA) Negative Urine Ketones Negative Ur Blood (Man) Negative Urine Nitrate Negative Urine Bilirubin Negative Urine Urobilinogen 0.2 Ur Leukocyte Esterase Negative Final Diagnosis (1) False labor: Code(s): O47.9 - False labor, unspecified Status: Acute
== END 2023-07-01 15:33 | disposition home or self-care (01) ==
PROVIDERS: Admitting Provider Obstetrics & Gynecology; Visit Provider Obstetrics & Gynecology
DX: O99.891 Other specified diseases and conditions complicating pregnancy (principal); M54.9 Dorsalgia, unspecified; O26.893 Other specified pregnancy related conditions, third trimester; R10.9 Unspecified abdominal pain; Z3A.33 33 weeks gestation of pregnancy
CPT/HCPCS: 81003; 84112; 87086; 87088; G0378; G0379

== ENCOUNTER 2023-08-26 07:06 | Emergency (ER) | payer OTHER, SELFPAY ==
[2023-08-26] VITALS (8 sets, daily range): BP systolic 113–132; BP diastolic 81–95; PULSE 71–83; RESP 12–20; TEMP 36.4–36.7; O2SAT 98–100
--- NOTE | ~2023-08-26 | XR_ITS ---
EXAMINATION: XR chest 2V DATE: 08/26/2023 08:01 INDICATION: Benign chest pain TECHNIQUE: PA and lateral views of the chest are obtained. COMPARISON: 08/19/2022 FINDINGS: The lungs are free of acute opacities. No pleural effusion or pneumothorax. The cardiomedia stinal silhouette is normal. The visualized bones and soft tissues are unremarkable. IMPRESSION: 1. No acute cardiopulmonary abnormality. Reviewed, dictated and finalized at location B. AL SERVICES COORDINATOR
--- NOTE | 2023-08-26 07:13 | ECG_ITS ---
Measurements Intervals [place] Rate: 72 P: 60 SC: 139 QRS: 92 QRSD: 86 T: 58 QT: 370 QTc: 408 Interpretive Statements SINUS RHYTHM WITH SINUS ARRHYTHMIA RIGHT AXIS DEVIATION MINIMAL Q WAVES- INFERIOR LEADS BORDERLINE ECG COMPARED TO ECG 06/12/2023 18:06:13 SINUS RHYTHM NOW PRESENT SINUS ARRHYTHMIA NOW PRESENT Electronically Signed On 08-26-2023 7:45:44 CHOREOGRAPHY DIRECTOR by Steve Fernando D.O.
[2023-08-26 07:41] LABS: Basophils Percent Auto 0.6 % (0.2-1.2); Eosinophils Absolute Auto 0.3 K/mm3 (0-0.3); Eosinophils Percent Auto 4.1 % (0-4.4); Hemoglobin 15.2 g/dL (12.0-15.0); Immature Granulocyte Absolute 0.01 K/mm3 (0.00-0.031); Immature Granulocyte Percent A 0.2 % (0-0.5); Lymphocytes Absolute Auto 1.69 K/mm3 (0.9-3.2); Lymphocytes Percent Auto 25.6 % (18.3-44.2); Mean Corpuscular HGB Conc 33.8 g/dl (32-36); Mean Corpuscular Hemoglobin 29.2 pg (26-34); Mean Corpuscular Volume 86.4 fl (80-100); Mean Platelet Volume 9.9 fl (7.4-10.4); Monocytes Absolute Auto 0.4 K/mm3 (0.1-0.6); Monocytes Percent Auto 6.5 % (2.6-8.5); Neutrophils Absolute Auto 4.2 K/mm3 (1.3-6.7); Platelet Count Result 318 k/mm3 (150-375); Red Blood Count 5.21 M/mm3 (4.2-5.4); Red Cell Distribution Width 12.6 % (11.5-14.5); White Blood Count 6.6 K/mm3 (4.5-10.0)
[2023-08-26 07:44] LABS: Appearance Urine Clear (Clear); Bacteria Urine Rare /hpf; Bilirubin Urine Negative (Negative); Blood Urine Negative (Negative); Color Urine Yellow (Yellow); Glucose Urine UA Negative (Negative); Ketones Urine Negative (Negative); Leukocyte Esterase Ur 3+ LEU/UL (Negative); Nitrate Urine Negative (Negative); Non Pathogenic Casts 0-2; Protein Urine Negative (Negative); RBC Urine 0-2 /hpf (0-2); Specific Grav Ur 1.014 (1.001-1.035); Squamous Epithelial Cell Urine Few /hpf (Few); Urobilinogen Urine 0.2 mg/dL (<2.0); WBC Urine 51-100 /hpf
--- NOTE | 2023-08-26 07:48 | ED.GENADULT ---
HPI - General Adult General Chief complaint: Chest Pain Stated complaint: blood pressure Time Seen by Provider: 08/26/23 07:18 History of Present Illness HPI narrative: Patient 22-year-old female who presents emergency department with chief complaint of chest pain and hypertension patient reports that she is approximately 2 weeks status post a . The patient reports that her OBGYN took her off of her labetalol on Tuesday since that her pressures have been running in the 130s to 140s over 90s the patient states she has had intermittent tightness in her chest as well patient reports she is concerned that she preeclampsia Related Data Home Medications Medication Instructions Recorded Confirmed vitamin with calcium 1 tablet PO DAILY 12/05/21 12/05/21 no.72-iron 27 mg-folic acid 1 mg tablet ( Vitamins Plus Low Iron) Allergies Allergy/AdvReac Type Severity Reaction Status Date / Time bee venom protein (honey bee) Allergy Hives Verified 08/26/23 07:22 [bees] Review of Systems Review of Systems: A 10 system review of systems was completed on the patient and is negative except for what is stated in the HPI. Nursing and ancillary documentation was reviewed. [facility] Past Medical History Medical History History of pre-eclampsia in prior , currently No pertinent past medical history Surgical History Surgical History No pertinent past surgical history Social History Social History Smoking status: Never smoker Exam Narrative: GENERAL: Well-appearing, well-nourished, and in no acute distress. HEAD: Normocephalic, atraumatic. EYES: PERRLA and EOMI. ENT: Nares clear, no rhinorrhea or epistaxis. Mucous membranes moist. NECK: Supple. CHEST: Clear to auscultation. No respiratory distress. HEART: Regular rate and rhythm. No murmur heard. Normal peripheral pulses. ABDOMEN: Soft, nontender, nondistended, normal active bowel sounds. EXTREMITIES: Normal range of motion. No edema. SKIN: Warm, dry, no rash. NEURO: No focal deficits. Alert and oriented x3. PSYCH: Normal mood and affect. Course Vital Signs Vital signs: Vital Signs Temperature 36.4 C 08/26/23 07:13 Pulse Rate 75 08/26/23 07:13 Respiratory Rate 15 08/26/23 07:13 Blood Pressure 132/95 H 08/26/23 07:13 Pulse Oximetry 100 08/26/23 07:13 Oxygen Delivery Room Air 08/26/23 07:13 Temperature 36.4 C 08/26/23 07:13 Pulse Rate 74 08/26/23 10:24 Respiratory Rate 12 08/26/23 10:24 Blood Pressure 113/82 08/26/23 10:24 Pulse Oximetry 100 08/26/23 10:24 Oxygen Delivery Room Air 08/26/23 07:24 Medical Decision Making MDM Narrative Medical decision making narrative: Differential diagnosis includes ACS, preeclampsia , dysrhythmia, pneumothorax, The patient had 1 blood pressure with a diastolic at 95. The rest have been in the 80s. For diastolic and systolic has been in the 1 teens. Urinalysis showed no evidence of protein liver enzymes were normal 0 hour troponin was negative and 3 hour delta troponin was also negative urinalysis showed no protein in the urine there was evidence of a urinary tract infection The patient will be started on oral antibiotics and patient should follow-up with her primary care provider. Vital Signs Vital Signs: Vital Signs Temperature 36.4 C 08/26/23 07:13 Pulse Rate 75 08/26/23 07:13 Respiratory Rate 15 08/26/23 07:13 Blood Pressure 132/95 H 08/26/23 07:13 Pulse Oximetry 100 08/26/23 07:13 Oxygen Delivery Room Air 08/26/23 07:13 Temperature 36.4 C 08/26/23 07:13 Pulse Rate 74 08/26/23 10:24 Respiratory Rate 12 08/26/23 10:24 Blood Pressure 113/82 08/26/23 10:24 Pulse O
[2023-08-26 07:54] LABS: INR 0.9; Partial Thromboplastin Time 25.9 SECONDS (22.3-36.8); Prothrombin Time 12.5 Seconds (11.1-14.7)
[2023-08-26 07:59] LABS: Alanine Aminotransferase 27 U/L (6-35); Albumin Level 4.6 g/dL (3.5-5.1); Alkaline Phosphatase 89 U/L (38-126); Anion Gap 4 mmol/L (8-16); Aspartate Amino Transferase 23 U/L (14-36); Bilirubin,Total 0.6 mg/dL (0.2-1.3); Blood Urea Nitrogen 14 mg/dL (7-17); Calcium 9.9 mg/dL (8.4-10.2); Carbon Dioxide 29 mmol/L (22-30); Chloride 106 mmol/L (98-107); Estimated CRCL calculation 120 ml/min; Estimated Glomerular Filt Rate > 60; Glucose 93 mg/dL (65-110); Lipase 51 U/L (23-300); Potassium 4.1 mmol/L (3.4-5.0); Sodium 139 mmol/L (137-145)
[2023-08-26 08:15] LABS: Add Urine Microscopic? YES
[2023-08-26 08:15] LABS: Troponin I < 0.012 ng/mL (0.000-0.034)
--- NOTE | 2023-08-26 10:15 | ECG_ITS ---
Measurements Intervals [place] Rate: 77 P: 49 IA: 148 QRS: 85 QRSD: 85 T: 38 QT: 360 QTc: 408 Interpretive Statements SINUS RHYTHM NORMAL ECG COMPARED TO ECG 08/26/2023 07:18:26 NO SIGNIFICANT CHANGES Electronically Signed On 08-26-2023 10:20:51 COMMERCIAL LOAN COORDINATOR by Steve Fernando D.O.
[2023-08-26 11:29] LABS: Troponin I < 0.012 ng/mL (0.000-0.034)
== END 2023-08-26 12:11 | disposition home or self-care (01) ==
PROVIDERS: Emergency Provider Emergency Medicine
DX: O86.20 Urinary tract infection following delivery, unspecified (principal); N39.0 Urinary tract infection, site not specified; O99.893 Other specified diseases and conditions complicating puerperium; R07.89 Other chest pain; R94.31 Abnormal electrocardiogram [ECG] [EKG]
CPT/HCPCS: 36415; 71046; 80053; 81001; 81025; 83690; 84484; 85025; 85610; 85730; 87086; 87088; 93005; 99284

== ENCOUNTER 2023-09-06 09:21 | Emergency (ER) | payer OTHER, SELFPAY ==
--- NOTE | ~2023-09-06 | XR_ITS ---
EXAMINATION: XR chest 2V DATE: 09/06/2023 10:34 INDICATION: Chest pain and shortness of breath. TECHNIQUE: PA and lateral views of the chest were obtained. COMPARISON: Chest radiograph dated 08/26/2023 FINDINGS: The lungs remain clear with no focal airspace opacities, pulmonary edema, pleural effusion or pneumot horax. The cardiomediastinal silhouette is normal. Visualized bones and soft tissues are unremarkable . IMPRESSION: 1. No acute cardiopulmonary disease. Reviewed, dictated and finalized at location A.
--- NOTE | 2023-09-06 09:25 | ECG_ITS ---
Measurements Intervals [place] Rate: 84 P: 50 IA: 138 QRS: 89 QRSD: 80 T: 63 QT: 355 QTc: 420 Interpretive Statements SINUS RHYTHM BASELINE ARTIFACT- I, II, III, AVR, V4-V6 NORMAL ECG COMPARED TO ECG 08/26/2023 10:19:29 NO SIGNIFICANT CHANGES Electronically Signed On 09-06-2023 9:49:06 CDT by Steve Fernando D.O.
[2023-09-06 09:28] VITALS: BP 119/75; PULSE 80; RESP 18; TEMP 36.8; O2SAT 100
[2023-09-06 09:52] LABS: Basophils Percent Auto 0.3 % (0.2-1.2); Eosinophils Absolute Auto 0.2 K/mm3 (0-0.3); Hematocrit 44.6 % (37.0-47.0); Hemoglobin 14.7 g/dL (12.0-15.0); Immature Granulocyte Absolute 0.01 K/mm3 (0.00-0.031); Immature Granulocyte Percent A 0.2 % (0-0.5); Lymphocytes Absolute Auto 1.63 K/mm3 (0.9-3.2); Lymphocytes Percent Auto 28.2 % (18.3-44.2); Mean Corpuscular Hemoglobin 28.4 pg (26-34); Mean Corpuscular Volume 86.1 fl (80-100); Monocytes Absolute Auto 0.4 K/mm3 (0.1-0.6); Monocytes Percent Auto 6.7 % (2.6-8.5); Neutrophils Absolute Auto 3.5 K/mm3 (1.3-6.7); Neutrophils Percent Auto 60.6 % (45.5-73.1); Platelet Count Result 264 k/mm3 (150-375); Red Blood Count 5.18 M/mm3 (4.2-5.4); Red Cell Distribution Width 12.4 % (11.5-14.5); White Blood Count 5.8 K/mm3 (4.5-10.0)
[2023-09-06 10:03] LABS: Alanine Aminotransferase 26 U/L (6-35); Albumin Level 4.7 g/dL (3.5-5.1); Alkaline Phosphatase 88 U/L (38-126); Anion Gap 6 mmol/L (8-16); Aspartate Amino Transferase 26 U/L (14-36); Bilirubin,Total 0.7 mg/dL (0.2-1.3); Blood Urea Nitrogen 12 mg/dL (7-17); Calcium 9.9 mg/dL (8.4-10.2); Carbon Dioxide 28 mmol/L (22-30); Chloride 105 mmol/L (98-107); Estimated CRCL calculation 137 ml/min; Estimated Glomerular Filt Rate > 60; Glucose 94 mg/dL (65-110); Lipase 55 U/L (23-300); Potassium 3.9 mmol/L (3.4-5.0); Sodium 139 mmol/L (137-145)
[2023-09-06 10:04] LABS: INR 0.9; Partial Thromboplastin Time 26.3 Seconds (22.3-36.8); Prothrombin Time 12.8 Seconds (11.1-14.7)
[2023-09-06 10:14] LABS: Troponin I < 0.012 ng/mL (0.000-0.034)
[2023-09-06 11:30] VITALS: BP 121/72; PULSE 70; RESP 20; O2SAT 100
[2023-09-06 12:01] VITALS: BP 108/63; PULSE 74; RESP 25; O2SAT 100
[2023-09-06 12:27] VITALS: BP 115/87; PULSE 73; RESP 11; O2SAT 100
[2023-09-06] MEDS: ASPIRIN 81 MG CHEWABLE TABLET 324 MG PO (12:27)
[2023-09-06 12:31] VITALS: BP 116/83; PULSE 70; RESP 14; O2SAT 100
--- NOTE | 2023-09-06 12:39 | ECG_ITS ---
Measurements Intervals [place] Rate: 69 P: 13 RI: 147 QRS: 76 QRSD: 86 T: 48 QT: 389 QTc: 419 Interpretive Statements SINUS RHYTHM WITH SINUS ARRHYTHMIA BASELINE ARTIFACT- I, II, AVR, AVL NORMAL ECG COMPARED TO ECG 09/06/2023 09:30:10 SINUS ARRHYTHMIA NOW PRESENT Electronically Signed On 09-06-2023 12:50:19 CDT by Steve Fernando D.O.
[2023-09-06 13:09] LABS: D Dimer < 0.22 ug/mL (<0.48)
[2023-09-06 13:11] LABS: Troponin I < 0.012 ng/mL (0.000-0.034)
--- NOTE | 2023-09-06 13:27 | ED.CHESTPAIN ---
HPI - Chest Pain General Chief Complaint: Chest Pain Stated Complaint: CHEST PAIN X3WKS HAS BEEN SEEN PRIOR FOR SAME C/O Time Seen by Provider: 09/06/23 11:58 History of Present Illness HPI narrative: 22-year-old female that is approximately 3 weeks presents to the emergency department for evaluation of some left-sided chest pain. Patient states she has had intermittent left-sided chest pressure for last few days but last night that it became more consistent. Patient does report increased pain with deep inspiration. Related Data Home Medications Medication Instructions Recorded Confirmed vitamin with calcium 1 tablet PO DAILY 12/05/21 12/05/21 no.72-iron 27 mg-folic acid 1 mg tablet ( Vitamins Plus Low Iron) Allergies Allergy/AdvReac Type Severity Reaction Status Date / Time bee venom protein (honey bee) Allergy Hives Verified 08/26/23 07:22 [bees] Review of Systems Review of Systems: All systems reviewed & are unremarkable except as noted in HPI and below PMFSH Past Medical History Medical History History of pre-eclampsia in prior , currently No pertinent past medical history Surgical History Surgical History No pertinent past surgical history Social History Social History Smoking status: Never smoker Exam Narrative: APPEARANCE: Well appearing, no pain, no distress, well-nourished. HEAD: normocephalic, atraumatic. EYES: PERRLA/EOMI, conjunctivae clear. NOSE: Normal no drainage EARS:TMS clear with good light reflex. THROAT: Pharynx clear, no exudate. NECK: Supple. No adenopathy, no masses. RESPIRATORY: Airway patent, respirations nonlabored. Clear to auscultation bilaterally, no rales, rhonchi, wheezing. CARDIOVASCULAR: Regular rate and rhythm without murmurs rubs or gallops. ABDOMINAL: Soft, nontender, nondistended, normal bowel sounds MUSCULOSKELETAL: Moves all extremities. Strength/ROM intact, No edema, No calf tenderness. NEURO: Alert. Cranial nerves II through XII intact. Grossly intact SKIN: Warm, dry. Normal Color Course Course Emergency Course: Patient was discharged to home with instructions for close outpatient follow-up Vital Signs Vital signs: Vital Signs Temperature 98.3 F 09/06/23 09:28 Pulse Rate 80 09/06/23 09:28 Respiratory Rate 18 09/06/23 09:28 Blood Pressure 119/75 09/06/23 09:28 Pulse Oximetry 100 09/06/23 09:28 Oxygen Delivery Room Air 09/06/23 09:28 Temperature 98.3 F 09/06/23 09:28 Pulse Rate 64 09/06/23 13:41 Respiratory Rate 18 09/06/23 13:41 Blood Pressure 118/88 09/06/23 13:41 Pulse Oximetry 100 09/06/23 13:41 Oxygen Delivery Room Air 09/06/23 11:20 MDM - Chest Pain MDM Narrative Medical decision making narrative: 22-year-old female presented to the emergency department for evaluation of left-sided chest pain. Patient had negative serial troponins and negative D-dimer. EKG showed normal sinus rhythm. Chest x-ray showed no acute cardiopulmonary abnormality. Suspect pleurisy as the underlying etiology for the patient's symptoms. Differential Diagnosis Differential diagnosis: Likely pneumothorax, unstable angina pectoris, atypical chest pain, st elevation myocardial infarction, costochondritis and chest pain Lab Data Attestation: I reviewed the patient's lab results. 09/06/23 09:47 09/06/23 09:47 Labs: Lab Results 09/06/23 09/06/23 Range/Units 09:47 12:35 WBC 5.8 (4.5-10.0) K/mm3 RBC 5.18 (4.2-5.4) M/mm3 Hgb 14.7 (12.0-15.0) g/dL Hct 44.6 (37.0-47.0) % MCV 86.1 (80-100) fl MCH 28.4 (26-34) pg MCHC 33.0 (32-36) g/dl RDW 12.4 (11.5-14.5) % Plt Count 264 (150-375) k/mm3 MPV 10.0 (7.4-10.4)
[2023-09-06 13:41] VITALS: BP 118/88; PULSE 64; RESP 18; O2SAT 100
== END 2023-09-06 13:41 | disposition home or self-care (01) ==
PROVIDERS: Emergency Medicine; Emergency Provider Emergency Medicine
DX: R07.89 Other chest pain (principal)
CPT/HCPCS: 36415; 71046; 80053; 83690; 84484; 85025; 85380; 85610; 85730; 93005; 99284; A9270